=== PATIENT | female | born 1965 | race African-American/Black ===

== ENCOUNTER 2025-03-26 09:17 | Outpatient (AMB) | payer OTHER, SELFPAY ==
--- OUTSIDE RECORDS SUMMARY | 2024-07-13 09:04 | XMS_ITS | Encounter Summary ---
Author Organization [facility] [place] [address] Care Team Providers Care Dermatology Procedural Physician Name Role Phone Anahi Jensen NP Primary Care Provider [phone] Encounter Details Date Type Department Care Team (Late st Contact Info) Description 07/13/2024 9:04 AM EDT Hospital Encounter TH HISTORIC ENCOUNTERS EASTERN CONVERSION ONLY Rivera Donald MD [address] [place] [address] Social History Tobacco Use Types Packs/Day Years Used Date Smoking Tobacco: Every Day Cigarettes Smokeless Tobacco: Never Alcohol Use Standard [...] your loved ones. For example, director of early childhood education or elderly care for an older adult? [...] Date Recorded What is your living situation? 0 10/11/2024 Comments No Sex and Gender Information Value Date Recorded Sex Assigned at Female 11/09/2022 7:07 AM EST Legal Sex Female 10:19 AM EST Gender Identity Female 11/09/2022 7:07 AM EST Sexual Orientation Straight 11/09/2022 7: 07 AM EST documented as of this encounter Plan of Treatment Upcoming Encounters Date Type Department Care Team (Late st Contact Info) Description 06/19/2025 8:00 AM EDT Office Visit [facility] [address] [facility] [address] [place] [address] Ramirez Suazo MD [address] [facility] [address] [place] [address] documented as of this encounter Procedures Procedure Name Priority Date/Time Associated Diagnosis Comments DR ABDOMEN FLAT AND ERECT Routine 07/13/2024 10:26 AM EDT documented in this encounter Results * DR ABDOMEN FLAT AND ERECT (07/13/2024 10:26 AM EDT) Anatomical Region Laterality Modality Radiographic Ramona ging 07/13/2024 9:09 AM EDT Narrative 07/13/2024 10:26 AM EDT [facility] Diagnostic Imaging Department [address] [place], [place] [phone] Patient: KASANDRA ELIZABETH D.O.B./Age/Sex: 1965 - 58 - F Unit#: [id number] Location/Status: SPDIGEN/REG CLI Mnemonic/[facility] Ordering Physician: RIVERA DONALD MD DR Abdomen Flat and Erect - 07/13/[address] Report Status:Signed HISTORY: The patient is a [...] constipation, a new finding since 10/06/2021. Code 91590 Dictating Physician: LUBA ST MD Electronically Signed by: LUBA ST MD Dic Date/Time: 07/13/24 1024 Sign date/Time: 07/13/24 [address] MD - 07/15/2024 [facility] Diagnostic Imaging Department [address] [place] [address] Patient: KASANDRA ELIZABEHT /Age/Sex: 1965 - 58 -F Unit#: [id number] Location/Status: SPDIGEN/REG CLI Mnemonic/Ordering Site: [facility] Ordering Physician: RIVEAR DONALD MD DR Abdomen Flat and Erect - 07/13/24 - 925 Report Status:Signed HISTORY: The patient is a [...] constipation, a new finding since 10/06/2021. Code 70241 Dictating Physician: LUBA ST MD Electronically Signed by: LUBA ST MD Dic Date/Time: 07/13/24 1024 Sign date/Time: 07/13/24 1026 Rivera Donald MD IMG XR PROCEDURES Final Result documented in this encounter Visit Diagnoses Not on filedocumented in this encounter Care Teams Dermatology Procedural Physician Relationship Specialty Start Date End Date Anahi Jensen NP [address] [place] [address] PCP - General 10/02/22 documented as of this encounter
--- NOTE | 2025-03-26 09:21 | HO.SPINEOV ---
Vital Signs 03/26/25 09:30 Height 5 ft 1 in Weight 125 lb BMI 23.6 Intake Visit Reasons: cervical stenosis Intake Note: Ms. Stewart is here today c/o neck pain. Car Filler Required: No Allergies No Known Allergies Allergy (Verified 03/26/25 09:30) Physical Exam Vital Signs: BMI result Body Mass Index 23.6 Assessment & Plan Assessment & Plan (1) Cervical myelopathy: Code(s): G95.9 - Disease of spinal cord, unspecified Category: Medical Plan Dear Marisela, Thank you for referring Mrs Stewart to our office today. She is a very nice 59-year-old female who presents today for evaluation of tingling in the dorsum of her hands and the tops of her feet, as well as tingling on the left side of her face as well as altered sensation of her tongue. The patient reports that the original symptoms were the tingling and pain in the left side of the face, and this started a few years ago. She thought that it might have happened from a dental procedure, but she can not really relate the symptoms connected to its specifically. She had a filling at that time on the right side. She would intermittently get the symptoms and ultimately ended up at your office, was worked up and because of neck pain underwent a cervical MRI which showed that she had degenerative disc disease with cord signal change and stenosis at C4-5. She was referred to Dr. Hughes at [facility] who recommended she undergo anterior cervical fusion. The visit was very brief and she did not feel as though she got answers to questions, and wanted to see us for a 2nd opinion. She reports that the tingling in the dorsum of her hands and her feet started just a few months ago. She does not report any problem with fine motor movements, gait instability or strength loss. No bowel or bladder incontinence reported either. PMH: She is reasonably healthy, history of hypertension which is well controlled, GERD, constipation but denies any issues with cardiopulmonary disease, kidney or liver problems, bleeding disorders, blood clots, endocrine disorders, infections, cancer etc. Social hx: She smokes about a pack a day, but does not drink or use any recreational drugs Medications: Amlodipine and pantoprazole Allergies: None Physical exam: Awake alert oriented, gait is normal, tandem gait testing is normal, strength is excellent in the upper and lower extremities, she is diffusely hyperreflexic with clonus in both ankles and Altamirano's sign in her right hand. Imaging review: Cervical MRI done at [facility] in 2023 with and without gadolinium, does not show any enhancement in the spinal cord but there is evidence of T2 cord signal change right behind the disc space of C4-5 where there is [id number] disc bulging and moderate to severe stenosis. There is some mild disc bulging at C6-7 but no significant cord compression seen. Brain MRI also done at [facility] showing no acute findings or structural abnormalities. Impression: 59-year-old female presents for evaluation of intermittent tingling and numbness as well as pain and altered sensation on left side of the face, in addition to tingling without numbness on the dorsum of her hands and dorsum of her feet. Brain MRI was negative, cervical MRI shows degenerative disc disease at C4-5 with moderate to severe stenosis and cord signal change. Although she has no strength loss or balance findings, she is diffusely hyperreflexic. This suggests that she is myelopathic just very early in the process. I am not sure if I can correlate the tingling and numbness of the face to the C4-5 level, that is typically a little bit higher in the cervical spine. Interestingly, when she underwent the MRI last year she was not having any of the symptoms in the hands or the feet. It was strictly a neck pain situation and the facial sensation changes. Therefore, I would like to get an updated picture to be clear that nothing has changed since last year as that MRIs done about 11 months ago. I will review everything with Dr. Kenny but I think he is also going to offer her ACDF C4-5 unless the new MRI shows something different. I had to cancel the patient however that the goal of surgery would not be to get rid of the symptoms, but rather to stabilize and prevent her from getting worse. She tells me that Dr. Hughes told her this as well. All pertinent risks and benefits of surgery as well as recovery were discussed. Once I have a chance to review the new MRI with Dr. Kenny I will call the patient with a final plan. Thank you for allowing us to care for your patient. The total time spent with this visit with this patient was 45 minutes reviewing history, physical exam, cervical MRI imaging review, and implementation of treatment plan or further diagnostic testing Tony Kenny MD,PhD [facility] Orders: Orders MR cervical spine wo con Today G95.9 - Disease of spinal cord, unspecified Coding Level of Care Code New Pt Level 4 (65586) Diagnoses Cervical myelopathy G95.9
[2025-03-26 09:30] VITALS: BMI 23.6
--- OUTSIDE RECORDS SUMMARY | 2025-03-26 09:39 | XMS_ITS | Clinical Summary ---
Author Organization [facility] Address [address] [place] [address] Care Team Providers Care Filing And Polishing Supervisor Name Role Phone Unavailable Primary Care Provider Unavailabl e Social History Tobacco Use Types Packs/Day Years Used Date Smoking Tobacco: Never Assessed Comments Unknown Sex and Gender Information Value Date Recorded Sex Assigned at Not on file Legal Sex Female 1:07 PM EDT Gender Identity Not on file Sexual Orientation Not on file Last Filed Vital Signs Vital Sign Reading Time Taken Comments Blood Pressure 110/70 05/07/2013 4:13 PM EDT Pulse 84 05/07/2013 4:13 PM EDT Temperature 36.7 C (98.1 F) 05/07/2013 4:13 PM EDT Respiratory Rate 16 05/07/2013 4:13 PM EDT Oxygen Saturation - - Inhaled Oxygen Concentration - - Weight 59 kg (130 lb 0.1 oz) 05/07/2013 4:13 PM EDT Height - - Body Mass Index - - Plan of Treatment Health Maintenance Due Date Last Done Comments Hepatitis C Virus Screening 1965 HIV Screening 1979 DTaP/Tdap/Td Vaccines (1 - Tdap) 1985 Hepatitis B Vaccines (1 of 3 - 19+ 3-dose series) 07/14 Pneumococcal Vaccines 50+ (1 of 1 - PCV) 2016 Zoster (Shingles) Vaccine (1 of 2) 2016 COVID-19 Vaccine (1 - 2023-25 season) 2024
--- OUTSIDE RECORDS SUMMARY | 2025-03-26 09:39 | XMS_ITS | Clinical Summary ---
Author Organization [facility] Address [address] [place] [address] Care Team Providers Care Programmer Numerical Control Name Role Phone Marlon Jimenes MD Primary Care Provider [phone] Allergies No known active allergies Medications Medication Sig Dispensed Refills Start Date End Date Status metroNIDAZOLE (FLAGYL) 250 MG tablet Take 1 tablet (250 mg total) by mouth 2 (two) times a day. 0 2022 Active nystatin (MYCOSTATIN) 132990 UNIT/ML suspension TAKE 4-6 ML BY MOUTH FOUR TIMES DAILY 0 08/26/2022 Active omeprazole (PriLOSEC) 20 MG capsule Take 1 capsule (20 mg total) by mouth daily. 0 08/26/2022 Active sulfamethoxazole-tr imethoprim (BACTRIM) 400-80 MG per tablet Take 1 tablet (80 mg of trimethoprim total) by mouth 2 (two) times a day. 0 08/12/2022 Active Active Problems Problem Noted Date Diagnosed Date Sprain of medial collateral ligament of left kne e 06/12/2022 Acute medial meniscus tear of right knee 022 Effusion of right knee joint 06/12/2022 Social History Tobacco Use Types Packs/Day Years Used Date Smoking Tobacco: Never Assessed Sex and Gender Information Value Date Recorded Sex Assigned at Not on file Gender Identity Not on file Sexual Orientation Not on file Job Start Date Occupation Industry Not on file Not on file Not on file Last Filed Vital Signs Vital Sign Reading Time Taken Comments Blood Pressure - - Pulse - - Temperature - - Respiratory Rate - - Oxygen Saturation - - Inhaled Oxygen Concentration - - Weight 63.5 kg (140 lb) 09/04/2022 9:17 AM EST Height 161.3 cm (5' 3.5 ) 09/04/2022 9:17 AM EST Body Mass Index 24.41 09/04/2022 9:17 AM EST Plan of Treatment Health Maintenance Due Date Last Done Comments Hepatitis B Vaccines (1 of 3 - 3-dose series) 1966 Hepatitis C Screening 1966 COVID-19 Vaccine (#1) 01/24/1967 Depression Screening 1978 BMI Counseling 1984 Preventative Health Evaluation 1984 DTap / Tdap / Td (1 - Tdap) 1985 Cervical Cancer Screening (P ap Smear) 1987 Colon Cancer Screening (Colonoscopy) 2011 Breast Cancer Screening (Mammogram) 2016 Shingrix-Zoster Vaccine (1 of 2) 2016 Influenza Vaccine (#1) 2025 Pneumococcal Vaccine Aged Out No long er eligible based on patient's age to complete this topic RSV Ped < 20 months Aged Out No longe r eligible based on patient's age to complete this topic Care Teams Programmer Numerical Control Relationship Specialty Start Date End Date Marlon Jimenes MD [address] [address] PCP - General Internal Medicine 06/10/22
--- OUTSIDE RECORDS SUMMARY | 2025-03-26 09:39 | XMS_ITS | Encounter Summary ---
Author Organization [facility] Address [address] [place] [id number] Care Team Providers Care Steel Erecting Pusher Name Role Phone Unavailable Primary Care Provider Unavailabl e Encounter Details Date Type Department Care Team (Latest Contact Info) Description 01/01/2022 Transcribed Orders [facility] Specimens [address] [place], [place] [id number] Emre Mathur MD [address] [place] [phone] Encounter for breast augmentation (Primary Dx); Pre-op testing Social History Tobacco Use Types Packs/Day Years Used Date Smoking Tobacco: Never Assessed Comments Unknown Sex and Gender Information Value Date Recorded Sex Assigned at Not on file Legal Sex Female 3:17 PM EDT Gender Identity Not on file Sexual Orientation Not on file documented as of this encounter Plan of Treatment Not on file documented as of this encounter Results * COVID-19 Clearance or for Placement Only (01/14/2022 3:18 PM EDT) SARS-CoV-2 RNA (COVID-19) Not Detected Not Detected 01/15/2022 6:14 AM EDT [facility] DEPARTMENT OF LABORATORY MEDICINE Comment: Negative for SARS-CoV-2 RNA. Fact Sheet for Healthcare Providers: https://www.fda.gov/media/616249/download Fact Sheet for Patients: https://www.fda.gov/media/704478/download Test performed using the Alicia rossy 6800 real-time RT-PCR assay. Test ordering and result interpretation is at the discretion of the ordering provider. Test performance has not been evaluated in asymptomatic patients. Test ordering and result interpretation is at the discretion of the ordering provider. Test performed at: [facility] DEPARTMENT OF LABORATORY MEDICINE [address] [place] [address] Director: Bradford Ordoñez MD [facility]#: [id number] Viral NASOPHARYNGEAL STRUCTURE / Unknown Collection / Unknown 01/14/2022 3:18 PM EDT 01/14/2022 3:18 PM EDT Emre Mathur MD MICROBIOLOGY - GENERAL ORDERABLE S Final Result Performing Organization Address [facility]/State/[facility] Co de Phone Number [facility] DEPARTMENT OF LABORATORY MEDICINE [address] [place] [id number], [facility] [phone] documented in this encounter Visit Diagnoses Diagnosis Encounter for breast augmentation- Primary Other plastic surgery for unacceptable cosmetic appearance Pre-op testing Preoperative examination, unspecified documented in this encounter
== END 2025-03-26 10:15 | disposition home or self-care (01) ==
LOC: HO.HNS 09:17
PROVIDERS: PCP Nurse Practitioner Primary Care; Referring Provider Physician Assistant; Visit Provider Physician Assistant
DX: G95.9 Disease of spinal cord, unspecified (principal)
CPT/HCPCS: 99204

== ENCOUNTER 2025-04-01 14:13 | Outpatient (REF) | payer OTHER, SELFPAY ==
--- OUTSIDE RECORDS SUMMARY | 2024-07-13 09:04 | XMS_ITS | Encounter Summary ---
Author Organization [facility] [place] [address] Care Team Providers Care Information Technology Analyst Name Role Phone Anahi Jensen NP Primary Care Provider [phone] Encounter Details Date Type Department Care Team (Late st Contact Info) Description 07/13/2024 9:04 AM EDT Hospital Encounter TH HISTORIC ENCOUNTERS EASTERN CONVERSION ONLY Rivera Donald MD [address] [place] [address] Social History Tobacco Use Types Packs/Day Years [...] care for your loved ones. For example, child and adolescent psychiatrist or elderly care for an older adult? [...] Description 06/19/2025 8:00 AM EDT Office Visit [facility] [address] [facility] [address] [place] [address] Ramirez Suazo MD [address] [facility] [address] [place] [address] documented as of this encounter Procedures Procedure Name Priority Date/Time Associated Diagnosis Comments DR ABDOMEN FLAT AND ERECT Routine 07/13/2024 10:26 AM EDT documented in this encounter Results * DR ABDOMEN FLAT AND ERECT (07/13/2024 10:26 AM EDT) Anatomical Region Laterality Modality Radiographic Ramona ging 07/13/2024 9:09 AM EDT Narrative 07/13/2024 10:26 AM EDT [facility] Diagnostic Imaging Department [address] [place], [place] [phone] Patient: KASANDRA ELIZABETH D.O.B./Age/Sex: 1965 - 58 - F Unit#: [id number] Location/Status: SPDIGEN/REG CLI Mnemonic/[facility] Ordering Physician: RIVERA DONALD [...] constipation, a new finding since 10/06/2021. Code 73484 Dictating Physician: LUBA ST MD Electronically Signed by: LUBA ST MD Dic Date/Time: 07/13/24 1024 Sign date/Time: 07/13/24 [address] MD - 07/15/2024 [facility] Diagnostic Imaging Department [address] [place] [address] Patient: KASANDRA ELIZABETH /Age/Sex: 1965 - 58 -F Unit#: [id number] Location/Status: SPDIGEN/REG CLI Mnemonic/Ordering Site: [facility] Ordering Physician: RIVERA DONALD [...] constipation, a new finding since 10/06/2021. Code 73693 Dictating Physician: LUBA ST MD Electronically Signed by: LUBA ST MD Dic Date/Time: 07/13/24 1024 Sign date/Time: 07/13/24 1026 Rivera Donald MD IMG XR PROCEDURES Final Result documented in this encounter Visit Diagnoses Not on filedocumented in this encounter Care Teams Information Technology Analyst Relationship Specialty Start Date End Date Anahi Jensen NP [address] [place] [address] PCP - General 10/02/22 documented as of this encounter
--- NOTE | ~2025-04-01 | MR_ITS ---
EXAMINATION: MR CERVICAL SPINE WITHOUT CONTRAST CLINICAL INFORMATION: Disease of spinal cord, unspecified. 51-year-old female complaining of tingling of arms and legs since 2023. No fall or injury. COMPARISON: None TECHNIQUE: Multiplanar multisequence MR imaging of the cervical spine was done without the administration IV gadolinium. Examination was performed on a 1.5 Katherine Siemens high-field unit, using standard sequences. FINDINGS: CORONAL ALIGNMENT: -Normal. SAGITTAL ALIGNMENT: -Normal lordosis. -No significant subluxations. -Trace 2 mm degenerative retrolisthesis C4 on C5. CRANIOCERVICAL JUNCTION/C1-2 ARTICULATIONS: -Intact and aligned. VERTEBRAL BODIES/BONE MARROW: -There is a mildly atypical hemangioma in C7. -There are mild edematous endplate changes present at C4-5 oriented to the right. -There are no compression deformities or evidence of acute fractures. -No additional bone marrow edema, or abnormal infiltrating bone marrow signal. DISCS: -Mild to moderate loss of disc height and signal diffusely, most significant at C4-5. CERVICAL CORD: -There is a focus of abnormal cord signal within the dorsal columns at the C4-5 disc level. Findings are suspicious for a focus of myelomalacia. There is mild cord impingement at this level as detailed below. -There is no additional abnormal cord signal identified. -There is no additional cord impingement identified. PARAVERTEBRAL SOFT TISSUES: -No edema, swelling, or abnormal fluid collection. -Thyroid is obscured by a saturation band. VISUALIZED INTRACRANIAL STRUCTURES: -Within normal limits. AXIAL DISC SPACE IMAGING: C2-C3: There is a shallow dorsal disc bulge, indenting upon the ventral thecal sac but not contacting the cord. There is minimal central canal narrowing. Normal facets. No neural foraminal narrowing. C3-C4: There is a diffuse disc bulge present, contiguous with bilateral mild uncinate spurring. This indents upon the ventral thecal sac, contacts and minimally flattens the ventral aspect of the cord. There is a thin sliver of CSF preserved posterior to the cord. There is no cord signal abnormality identified. There is mild to moderate central canal narrowing. Mild bilateral facet spurring and bilateral uncinate spurring contributes to moderate bilateral neural foraminal encroachment. C4-C5: There is a diffuse concentric disc bulge present, contiguous with bilateral mild uncinate spurring. This indents upon the ventral thecal sac, contacts and flattens the ventral aspect of the cord. There is mild cord impingement. There is signal abnormality in the dorsal columns suggestive of myelomalacia (series 9, image 12). Moderate uncinate spurring bilaterally with mild facet spurring contributes to severe bilateral neural foraminal impingement. C5-C6: There is a concentric shallow disc bulge indenting upon the ventral thecal sac but not contacting the cord. There is mild central canal stenosis. Mild uncinate spurring bilaterally contributes to mild right greater than left neural foraminal narrowing. C6-C7: There is a diffuse concentric disc bulge present, indenting on the ventral thecal sac but not contacting the cord. This results in mild central canal stenosis. Moderate uncinate spurring right greater than left is present, contributing to severe right and moderate to severe left neural foraminal stenosis. C7-T1: There is no significant central canal narrowing or disc bulging. Left greater than right facet hypertrophic arthropathy is present, resulting in mild left greater than right neural foraminal narrowing. T1-T2: There is a diffuse concentric disc bulge present with superimposed bilateral lateral disc protrusions (series 9, image 27) which result in mild central canal narrowing, significant bilateral lateral recess narrowing, and moderate right greater than left neural foraminal narrowing. T2-T4: No central canal or neural foraminal narrowing. MR/MR cervical spine wo con IMPRESSION: 1. There is mild to moderate multilevel cervical spondylosis as discussed above. 2. There is cord impingement at C4-5 with a focus of abnormal signal in the dorsal and lateral columns of the cord, suggestive of focal myelomalacia. There is severe bilateral neural foraminal narrowing at this level. 3. A diffuse disc bulge at C3-4 indents upon the ventral cord but does not result in cord impingement or signal abnormality. 4. There are mild edematous type endplate changes at C4-5. 5. At T1-T2, there are bilateral lateral protrusions of disc material resulting in significant bilateral lateral recess narrowing, and moderate bilateral neural foraminal narrowing. 6. Refer to the body of the report for additional details. Electronically signed by: Benito Gandara MD 04/02/2025 01:01 PM EDT
--- OUTSIDE RECORDS SUMMARY | 2025-04-01 14:20 | XMS_ITS | Patient Health Record ---
Author Organization [facility] [place] Address [address] [place] [place] [address] Care Team Providers Care Collator Hand Name Role Phone Anahi Jensen Primary Care Provider Ceci Galdamez Unavailable [phone] Allergies No Known Allergies Reason For Referral No Information Medications Medication SIG (Take, Route, Frequency, Duration) Notes Start Date End Date Status Percocet 5-325 MG 1 tablet as needed Orally every 6 hrs; Duration: 2 days 12/18/2022 Not-Taking Ketoconazole 2 % 1 application Apply a thin layer to externally to feet, even between toes Twice a day; Duration: 30 days Active Ciclopirox Olamine 0.77 % 1 application to affected area Externally to feet Twice a day; Duration: 30 days Not-Taking Vitamin B 12 Active amLODIPine Benzoate Active Vitamin D3 Not-Takin g Immunizations Vaccine Route Administration Date Status Comme nts Influenza Unknown 07/05/2024 Administered Social History Tobacco Use: Social History Observation Description Date Details (start date - stop date) Current Smoker NA - NA Tobacco use other than smoking: Question Answer Notes Are you an other tobacco user? No Tobacco Control (Standard) Question Answer Notes Tobacco use: Current smoker How often do you smoke cigarettes? Every day How many cigarettes a day do you smoke? 11-20 How soon after you wake up d o you smoke your first cigarette? 6-30 minutes Are you interested in quitting? Thinking about q uitting AUDIT-C (Standard) Question Answer Notes Did you have a drink containing alcohol in the p ast year? No Points 0 Interpretation Negative Problems Problem Type SNOMED Code ICD Code Onset Dates Problem Status W/U Status Risk Notes Problem Plantar wart (71338406) Plantar wart (B07.0) Active confirmed Problem Acquired hammer toe of left foot (5747890731717 103) Other hammer toe(s) (acquired), left foot (M20.42) Active confirmed Problem 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) Active confirmed Vital Signs Blood pressure diastolic 70 mm Hg 02/22/2025 Height 5ft 1in in 02/22/2025 Blood pressure systolic 130 mm Hg 02/22/2025 Weight 130 lbs 02/22/2025 BMI 24.56 kg/m2 02/22/2025 Encounters Encounter Location Date Provider Diagnosis [facility] [address] 02/22/2025 Ceci Aguero Plantar wart B07.0 ; Other hammer toe(s) (acquired), left foot M20.42 ; Tinea pedis of both feet B35.3 ; Left foot pain M79.672 ; Pain in left toe(s) M79.675 and Heloma molle L[address] [facility] [address] 02/16/2025 Ceci Aguero [facility] [address] 02/22/2025 Ceci Aguero [facility] [address] 02/22/2025 Ceci Aguero Assessments Encounter Date Diagnosis (ICD Code) Assessment Notes Treatment Notes Treatment Clinical Notes Section Notes 02/22/2025 Plantar wart (ICD-10 - B07.0) 02/22/2025 Other hammer toe(s) (acquired), left foot (ICD-10 - M20.42) 02/22/2025 Tinea pedis of both feet (ICD-10 - B35.3) 02/22/2025 Left foot pain (ICD-10 - M79.672) 02/22/2025 Pain in left toe(s) (ICD-10 - M79.675) 02/22/2025 Heloma molle (ICD-10 - L84) Plan Of Treatment Next Appt Details Provider Name:Ceci titus, 04/09/2025 04:00:00 PM, [address] [place] [address], [place], [address], Insurance Providers Payer Name Payer Address Payer Phone Subscriber Number Group Number Insured Name Patient Relationship to Insured Coverage Start Date Coverage End Date [facility] [address] [place] [address] [id number] Kasandra Stewart Self - patient is the insured Medical (General) History Medical History History ICD Code Crohns disease High Blood Pressure Surgical History Surgery Date(Month/Year) hysterectomy Hospitalization History Reason Date(Month/Year) issues with foot and stomach
--- OUTSIDE RECORDS SUMMARY | 2025-04-01 14:20 | XMS_ITS | Clinical Summary ---
Author Organization [facility] Address [address] [place] [address] Care Team Providers Care Assembler For Puller Over Machine Name Role Phone Unavailable Primary Care Provider [...] Vaccine (1 of 2) 2016 COVID-19 Vaccine ( - 2023-25 season) 2024
--- OUTSIDE RECORDS SUMMARY | 2025-04-01 14:20 | XMS_ITS | Encounter Summary ---
Author Organization [facility] Address [address] [place] [phone] Care Team Providers Care Flight Manager Name Role Phone Unavailable Primary Care Provider Unavailabl e Encounter Details Date Type Department Care Team (Latest Contact Info) Description 01/01/2022 Transcribed Orders [facility] Specimens [address] [place], [place] [id number] Emre Mathur MD [address] [place] [phone] Encounter for breast augmentation (Primary Dx); [...] Detected Not Detected 01/15/2022 6:14 AM EDT [facility] DEPART[facility] OF LABORATORY MEDICINE Comment: Negative for SARS-CoV-2 RNA. Fact Sheet for Healthcare Providers: https://www.fda.gov/media/279241/download Fact Sheet for Patients: https://www.fda.gov/media/583124/download Test performed using the Alicia rossy 6800 real-time RT-PCR assay. Test ordering and result interpretation is at the discretion of the ordering provider. Test performance has not been evaluated in asymptomatic patients. Test ordering and result interpretation is at the discretion of the ordering provider. Test performed at: [facility] DEPARTMENT OF LABORATORY MEDICINE [address] [place] [address] Director: Bradford Ordoñez MD [facility]#: [id number] Viral NASOPHARYNGEAL STRUCTURE / Unknown Collection / Unknown 01/14/2022 3:18 PM EDT 01/14/2022 3:18 PM EDT Emre Mathur MD MICROBIOLOGY - GENERAL ORDERABLE S Final Result Performing Organization Address [facility]/State/[facility] Co de Phone Number [facility] OF LABORATORY MEDICINE [address] [place] [address], [facility] [phone] documented in this encounter Visit Diagnoses Diagnosis Encounter for breast augmentation- Primary Other plastic surgery for unacceptable cosmetic appearance Pre-op testing Preoperative examination, unspecified documented in this encounter
== END 2025-04-01 14:14 | disposition home or self-care (01) ==
LOC: HO.MRI 14:13
PROVIDERS: Visit Provider Physician Assistant
DX: G95.9 Disease of spinal cord, unspecified (principal)
CPT/HCPCS: 72141

== ENCOUNTER → 2025-04-01 14:13 | Outpatient (BNV) | payer OTHER, SELFPAY | PROVIDERS: Visit Provider Radiology Diagnostic Radiology | DX: M47.812 Spondylosis without myelopathy or radiculopathy, cervical region (principal) | CPT/HCPCS: 72141 ==

== ENCOUNTER 2025-05-31 05:46 | Day surgery (SDC) | payer OTHER, SELFPAY ==
--- OUTSIDE RECORDS SUMMARY | 2024-07-13 09:04 | XMS_ITS | Encounter Summary ---
Author Organization [facility] [place] [address] Care Team Providers Care Cloth Beamer Name Role Phone Anahi Jensen NP Primary Care Provider [phone] Encounter Details Date Type Department Care Team (Late st Contact Info) Description 07/13/2024 9:04 AM EDT Hospital Encounter TH HISTORIC ENCOUNTERS EASTERN CONVERSION ONLY Rivera Donald MD [address] [place] [address] Social History Tobacco Use Types Packs/Day Years [...] care for your loved ones. For example, salesperson children's shoes or elderly care for an older adult? [...] Description 06/19/2025 8:00 AM EDT Office Visit [facility] [address] [facility] [address] [place] [address] Ramirez Suazo MD [address] [facility] [address] [place] [address] documented as of this encounter Procedures Procedure Name Priority Date/Time Associated Diagnosis Comments DR ABDOMEN FLAT AND ERECT Routine 07/13/2024 10:26 AM EDT documented in this encounter Results * DR ABDOMEN FLAT AND ERECT (07/13/2024 10:26 AM EDT) Anatomical Region Laterality Modality Radiographic Ramona ging 07/13/2024 9:09 AM EDT Narrative 07/13/2024 10:26 AM EDT [facility] Diagnostic Imaging Department [address] [place], [place] [id number] Patient: KASANDRA ELIZABETH D.O.B./Age/Sex: 1965 - 58 - F Unit#: [id number] Location/Status: SPDIGEN/REG CLI Mnemonic/[facility] Ordering Physician: RIVERA DONALD MD DR Abdomen [...] constipation, a new finding since 10/06/2021. Code 15916 Dictating Physician: LUBA ST MD Electronically Signed by: LUBA ST MD Dic Date/Time: 07/13/24 1024 Sign date/Time: 07/13/24 [address] MD - 07/15/2024 [facility] Diagnostic Imaging Department [address] [place] [address] Patient: KASANDRA ELIZABETH /Age/Sex: 1965 - 58 -F Unit#: [id number] Location/Status: SPDIGEN/REG CLI Mnemonic/Ordering Site: [facility] Ordering Physician: RIVERA DONALD MD DR Abdomen [...] constipation, a new finding since 10/06/2021. Code 90146 Dictating Physician: LUBA ST MD Electronically Signed by: LUBA ST MD Dic Date/Time: 07/13/24 1024 Sign date/Time: 07/13/24 1026 Rivera Donald MD IMG XR PROCEDURES Final Result documented in this encounter Visit Diagnoses Not on filedocumented in this encounter Care Teams Cloth Beamer Relationship Specialty Start Date End Date Anahi Jensen NP [address] [place] [address] PCP - General 10/02/22 documented as of this encounter
--- OUTSIDE RECORDS SUMMARY | 2025-04-27 06:52 | XMS_ITS | Clinical Summary ---
Author Organization [facility] Address [address] [place] [address] Care Team Providers Care Customer Service Manager Name Role Phone Unavailable Primary Care [...]
--- OUTSIDE RECORDS SUMMARY | 2025-04-27 06:52 | XMS_ITS | Encounter Summary ---
Author Organization [facility] Address [address] [place] [address] Care Team Providers Care Sports Development Officer Name Role Phone Unavailable Primary Care Provider Unavailabl e Encounter Details Date Type Department Care Team (Latest Contact Info) Description 01/01/2022 Transcribed Orders [facility] Specimens [address] [place], [place] [id number] Emre Mathur MD [address] [place] [phone] Encounter for breast augmentation (Primary Dx); [...] Detected 01/15/2022 6:14 AM EDT [facility] DEPARTMENT OF LABORATORY MEDICINE Comment: Negative for SARS-CoV-2 RNA. Fact Sheet for Healthcare Providers: https://www.fda.gov/media/334700/download Fact Sheet for Patients: https://www.fda.gov/media/956487/download Test performed using the Alicia rossy 6800 real-time RT-PCR assay. Test ordering and result interpretation is at the discretion of the ordering provider. Test performance has not been evaluated in asymptomatic patients. Test ordering and result interpretation is at the discretion of the ordering provider. Test performed at: [facility] DEPARTMENT OF LABORATORY MEDICINE [address] [place] [address] Director: Bradford Ordoñez MD [facility]#: [id number] Viral NASOPHARYNGEAL STRUCTURE / Unknown Collection / Unknown 01/14/2022 3:18 PM EDT 01/14/2022 3:18 PM EDT Emre Mathur MD MICROBIOLOGY - GENERAL ORDERABLE S Final Result Performing Organization Address [facility]/State/[facility] Co de Phone Number [facility] DEPARTMENT OF LABORATORY MEDICINE [address] [place] [address], [facility] [phone] documented in this encounter Visit Diagnoses Diagnosis Encounter for breast augmentation- Primary Other plastic surgery for unacceptable cosmetic appearance Pre-op testing Preoperative examination, unspecified documented in this encounter
--- OUTSIDE RECORDS SUMMARY | 2025-04-27 06:52 | XMS_ITS | Patient Health Record ---
Author Organization [facility] lisa Ione Address [address] [facility] [place] [address] Care Team Providers Care Nurse Staff Industrial Name Role Phone Anahi Jensen Primary Care Provider Ceci Galdamez Unavailable [phone] Allergies No Known Allergies Reason For Referral No Information Medications Medication SIG (Take, Route, Frequency, Duration) Notes Start Date End Date Status amLODIPine Benzoate Active Vitamin B 12 Active Vitamin D3 Not-Takin [...] Twice a day; Duration: 30 days Active Immunizations Vaccine Route Administration Date Status Comme [...] W/U Status Risk Notes Problem Plantar wart (43840469) Plantar wart (B07.0) Active confirmed Problem Acquired hammer toe of left foot (7571459881756 103) Other hammer toe(s) (acquired), left foot (M20.42) Active confirmed Problem 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) Active confirmed Vital Signs Blood pressure diastolic 70 mm Hg 02/22/2025 Height 5ft 1in in 02/22/2025 Blood pressure systolic 130 mm Hg 02/22/2025 Weight 130 lbs 02/22/2025 BMI 24.56 kg/m2 02/22/2025 Encounters Encounter Location Date Provider Diagnosis [address] [address] 02/22/2025 Ceci Aguero Plantar wart B07.0 ; Other hammer toe(s) (acquired), left foot M20.42 ; Tinea pedis of both feet B35.3 ; Left foot pain M79.672 ; Pain in left toe(s) M79.675 and Heloma molle L[address] [facility] [address] 02/16/[address] [address] [facility] [address] 02/22/2025 Ceci Aguero [address] [address] 04/09/2025 Ceci Aguero Assessments Encounter Date Diagnosis (ICD [...] molle (ICD-10 - L84) Plan Of Treatment No Information Insurance Providers Payer Name Payer Address Payer Phone Subscriber Number Group Number Insured Name Patient Relationship to Insured Coverage Start Date Coverage End Date [facility] [address] [place] [address] [phone] [id number] Kasandra Stewart Self - patient is the insured Medical (General) History Medical History History ICD Code Crohns disease High Blood Pressure Surgical History Surgery Date(Month/Year) hysterectomy Hospitalization History Reason Date(Month/Year) issues with foot and stomach
--- OUTSIDE RECORDS SUMMARY | 2025-04-27 06:52 | XMS_ITS | Clinical Summary ---
Author Organization [facility] Address [address] [place] [address] Care Team Providers Care Power Lineman Name Role Phone Marlon Jimenes MD Primary Care Provider [phone] Allergies No known active allergies Medications Medication Sig Dispensed Refills Start Date End Date Status metroNIDAZOLE (FLAGYL) 250 MG tablet Take 1 tablet (250 mg total) by mouth 2 (two) times a day. 0 2022 Active nystatin (MYCOSTATIN) 817850 UNIT/ML suspension TAKE 4-6 ML BY MOUTH [...] age to complete this topic Care Teams Power Lineman Relationship Specialty Start Date End Date Marlon Jimenes MD [address] [address] PCP - General Internal Medicine 06/10/22
[2025-05-23 13:32] VITALS: BMI 24.9
--- NOTE | 2025-05-29 16:20 | P.DS_ITS ---
DS: Providers Provider Date of Service: 05/31/25 Date of discharge: 05/31/25 Primary care physician: Unknown Physician Admitting clinician: Jeremy Kenny DS: Diagnosis Discharge Diagnosis (1) Cervical myelopathy: Status: Acute DS: Summary Time Attestation Discharge Coordination Time (in mins): 5 Quality: Safe Use of Opioids Does Pt have an Active Cancer Diagnosis on the Problem List?: No Quality: Stroke Does the patient have a stroke diagnosis?: No Physical Exam Vital Signs: Vital Signs: BMI result Body Mass Index 24.9 Discharge Plan Discharge Patient Disposition: Home, Self-Care Referrals: Physician,Unknown J [Primary Care Provider, Medical] - 1 Week Discharge Medications: New oxycodone 5 mg tablet 5 mg PO Q4H PRN (Reason: pain) Qty: 20 0RF Rx Instructions: Partial Fill upon patient request. Continued amlodipine 5 mg tablet 5 mg PO DAILY pantoprazole 20 mg tablet,delayed release (DR/EC) 20 mg PO DAILY polyethylene glycol 3350 [Miralax] 17 gram/dose Powder 17 g PO DAILY Linzess 290 mcg capsule 290 mcg PO DAILY Discharge Orders: Discharge Order (Routine); Ordered 05/31/25 Ordered By: Tony Nogueira Diet: Advance to usual diet Activity on Discharge: As tolerated Activity Restrictions/Additional Instructions: After your spinal surgery we ask you to observe the following restrictions/guidelines: Activity: It is normal to feel some discomfort as you increase your activity, but that will improve with time. We ask you avoid heavy lifting or acitivities that cause pain. As a general rule, 8lbs is a safe limit for lifting right after surgery. Walk as much as you feel comfortable but not to exhaustion. You will feel extra tired the first few days after surgery. Stay well hydrated. It is OK to walk up and down stairs You may return to driving when you are off narcotics (such as vicodin, oxycodone, dilaudid, etc), and you are back to normal functional capacity. If you have any concerns please check with office before driving. Return to work is specific to each patient and each surgery, so please speak with your doctor/PA at first follow up. Please bring paperwork such as FMLA at that time if you need it filled out. Medications: For optimum pain control, it is best to start with a combination of 500 mg of Tylenol every 4 hours with 600 mg of Motrin every 8 hours, and use narcotics as needed in between for breakthrough pain. We will give you a short supply of narcotics after surgery (usually one weeks wo rth). If you need more please call the office but do not use more than prescribed. You will need to give our office 48 hours notice if you need narcotics refilled and we do not fill narcotics on weekends or evenings. If you are on a narcotic, it is a good idea to take a stool softener such as colace or senna to avoid constipation If you take blood thinner such as aspirin, Plavix, Coumadin, Effient, Eliquis etc for conditions such as Afib, DVT, Pulmonary embolus, coronary disease, stents etc please speak with your surgeon about specific details as to when you can resume these medications. Follow up: Please call the office, , after surgery to arrange a 3 week follow up for wound check. Wound Care: You may remove your dressing on the first day after surgery. ?You may ?leave open to air. Please do not remove the steri strips underneath. they will fall off on their own in one week. IT IS NORMAL FOR THE WOUND TO OOZE OR BE BLOODY FOR A FEW DAYS AFTER SURGERY. ?IF THIS HAPPENS JUST PLACE NEW DRESSING OVER IT TO AVOID STAINING CLOTHES. You may shower on post op day # 1 We ask that you do not let the water soak the wound. If it does get wet, just towel dry lightly. Please do not scrub your incision or place any type of chemical/ointment on the wound. No tub baths, pools or jacuzzis for one month. If you have any leaking or redness from your wound, or fevers, please call office Print Language: Frisian
[2025-05-31] VITALS (11 sets, daily range): BP systolic 87–125; BP diastolic 57–84; PULSE 62–83; RESP 8–16; TEMP 36.1–36.3; O2SAT 95–100
--- NOTE | ~2025-05-31 | FL_ITS ---
EXAMINATION: FL GUIDANCE ONLY HISTORY: C4-5 ACDF COMPARISON: Correlation is made with an MRI of the cervical spine dated 04/01/2025. TECHNIQUE: Fluoroscopy time: 5.6 seconds. Cumulative Dose: 0.5443 mGy. DAP: 0.151 mGym2 Images: 2. FINDINGS: Fluoroscopic spot films of the cervical spine demonstrate anterior cervical disc fusion at C4-5. FL/FL guidance in OR IMPRESSION: Fluoroscopy during procedure. Please see procedure report for additional information. Electronically signed by: Manuel Sterling MD 05/31/2025 09:02 AM EDT
[2025-05-31] MEDS: Lactated Ringers 1,000 ML 100 ML IVCONT (06:35)
--- NOTE | 2025-05-31 06:59 | MHC.SHP ---
Pre-Procedural Eval Section A - 24 Hr Update-Section A only Date of Service: 05/31/25 The patient is an INPATIENT: No Changes since office visit: No Cold of Flu in the past 2 weeks, No New Medical Problems, No Changes in Medication and No Patient answered all questions The patient has been examined within 24 hours of the surgical procedure. The History & Physical has been completed within 30 days and I have reviewed it.: No Section B - Complete if H&P > 30 days Chief Complaint: Disease of spinal cord, unspecified Allergies: Allergies Allergy/AdvReac Type Severity Reaction Status Date / Time No Known Allergies Allergy Verified 03/26/25 09:30 Review of Systems Sugical H&P ROS: Negative: Constitution, Cardiovascular, Respiratory, Neurological, Psychiatric, Hem-Onc, Allergic/Immunologic, Gastrointestinal, Genitourinary, Musculoskeletal, Integumentary, Endocrine and Eyes/Ears/Nose/Throat Exam Surgical H&P Exam: Normal: HEENT, Normal: Heart, Normal: Lungs, Normal: Extremities, Normal: Abdomen, Normal: Skin and Normal: Neurological (awake, alert,oriented x 3 ) Plan Diagnosis/Plan: Unchanged C4-5 Anterior cervical diskectomy and fusion Time Spent With Patient Time: Total time managing care of this patient today __6__ minutes.
--- NOTE | 2025-05-31 07:06 | HO.ANESPROP2 ---
Documented by User: Sri Valdez NP 05/23/25 15:01 HPI - Anesthesia Eval Consult details Narrative: 59 yr old female for C4-5 Ant Cerv Discectomy w/ fusion PMFSH Active Problems Active Problems: All Active Problems (Updated 05/23/25 @ 13:29 by Dalia Peters RN) Cervical myelopathy (Acute) Past Medical History Medical History Anxiety Thyroid nodule HTN (hypertension) GERD (gastroesophageal reflux disease) Dysphagia Ulcerative colitis IBS (irritable bowel syndrome) Surgical History Surgical History Hx of hysterectomy History of esophagogastroduodenoscopy (EGD) H/O colonoscopy Hx of breast augmentation Social History Social History Are you a primary director of critical care to a significant other at home: No Do you presently have visiting nurse or other home services: No Patient Tobacco Use Status: Current everyday Tobacco user Tobacco use type: Cigarette Cigarettes Per Day: 8 Years Smoked: 10 Use of substances other than those prescribed or required for medical reasons: No Have you been hit, kicked, punched, or otherwise hurt by someone within the past year? If so, by whom?: No Spiritual Healthcare Practices: no Restoration Healthcare Practices: no Cultural Healthcare Practices: no Are you DNR?: No Advance Directives on File: No FDLMP: n/a Poor oral hygiene: No (one gold crown) Meds Allergies Allergy/AdvReac Type Severity Reaction Status Date / Time No Known Allergies Allergy Verified 03/26/25 09:30 Home Medications ?Medication ?Instructions ?Recorded ?Confirmed ?Last Taken ?Type amlodipine 5 mg tablet 5 mg PO DAILY 05/22/25 05/31/25 05/31/25 History pantoprazole 20 mg tablet,delayed 20 mg PO DAILY 05/22/25 05/31/25 05/31/25 History release linaclotide 290 mcg capsule 290 mcg PO DAILY 05/23/25 05/31/25 Unknown History (Linzess) polyethylene glycol 3350 17 17 g PO DAILY 05/23/25 05/31/25 Unknown History gram/dose oral powder (Miralax) Exam Height,Weight and Vital Signs: Height 5 ft 1 in Weight 59.9 kg Pertinent Lab Results Pertinent Lab Results: Lab result from [facility] 05/18/25 Sodium: 140 Potassium 3.5 Glucose 97 BUN 18 Creatinine 0.83 A1C 6.1% WBC 5.8 RBC 4.20 Hgb 12.6 Hct 37.6 Platelets 272 Narrative Narrative: EKG 05/18/25 Normal sinus rhythm, rate 7 Left axis deviation No acute ST-T wave changes Documented by User: Cristin Gimenez, 05/31/25 07:07 [facility] Past Medical History Medical History Anxiety Thyroid nodule HTN (hypertension) GERD (gastroesophageal reflux disease) Dysphagia Ulcerative colitis IBS (irritable bowel syndrome) Family History Family history of problems with anesthesia: No Surgical History Surgical History Hx of hysterectomy History of esophagogastroduodenoscopy (EGD) H/O colonoscopy Hx of breast augmentation History of Problems with Anesthesia: No Social History Social History Are you a primary director of critical care to a significant other at home: No Do you presently have visiting nurse or other home services: No Patient Tobacco Use Status: Current everyday Tobacco user Tobacco use type: Cigarette Cigarettes Per Day: 8 Years Smoked: 10 Use of substances other than those prescribed or required for medical reasons: No Have you been hit, kicked, punched, or otherwise hurt by someone within the past year? If so, by whom?: No Spiritual Healthcare Practices: no Restoration Healthcare Practices: no Cultural Healthcare Practices: no Are you DNR?: No Advance Directives on File: No FDLMP: n/a Poor oral hygiene: No (one gold crown) Meds Allergies Allergy/AdvReac Type Severity Reaction Status Date / Time No Known Allergies Allergy Verified 03/26/25 09:30 Home Medications ?Medication ?Instructions ?Recorded ?Confirmed ?Last Taken ?Type amlodipine 5 mg tablet 5 mg PO DAILY 05/22/25 05/31/25 05/31/25 History pantoprazole 20 mg tablet,delayed 20 mg PO DAILY 05/22/25 05/31/25 05/31/25 History release linaclotide 290 mcg capsule 290 mcg PO DAILY 05/23/25 05/31/25 Unknown History (Linzess) polyethylene glycol 3350 17 17 g PO DAILY 05/23/25 05/31/25 Unknown History gram/dose oral powder (Miralax) Exam Exam Date and Time: 05/31/25 07 Height,Weight and Vital Signs: Height 5 ft 1 in Weight 59.9 kg Vital Signs Temperature 97.4 F 05/31/25 06:26 Pulse Rate 75 05/31/25 06:26 Respiratory Rate 16 05/31/25 06:26 Blood Pressure 125/84 05/31/25 06:26 Pulse Oximetry 97 05/31/25 06:26 Oxygen Delivery Method Room Air 05/31/25 06:26 Temperature 97.4 F 05/31/25 06:26 Pulse Rate 75 05/31/25 06:26 Respiratory Rate 16 05/31/25 06:26 Blood Pressure 125/84 05/31/25 06:26 Pulse Oximetry 97 05/31/25 06:26 Oxygen Delivery Method Room Air 05/31/25 06:26 Airway Mallampati Class: II TM Dist: >3cm Neck ROM: Full Loose/Missing/Broken Teeth: No (patient denies any loose or broken teeth) Heart: S1S2 Lungs: CTAB Assessment and Plan Assessment Anesthesia Assessment: Anesthesia Plan Discussed and Chart Reviewed Final Anesthetic Review Family History of Problems with Anesthesia: No History of Problems with Anesthesia: No NPO: Yes ASA Class: II Final Preanesthetic Review: No Changes in Pt Med Stat, Meds/Allgs Chart Reviewed, Consent Obtained/Reviewed and Anes Risks/Benef Reviewed Patient Risk: Low Procedure Risk: Intermediate Anesthetic Plan Anesthetic Plan: GA and Agree w/ Assess. and Plan Disposition: Standard PACU
--- NOTE | 2025-05-31 08:39 | W.PM.OPN ---
Operative Note Operative Note Date of Service: 05/31/25 Narrative: Preoperative Diagnosis: Cervical myelopathy Procedure: C4-5 Anterior discectomy, arthrodesis and implantation cage ; C4-5 anterior instrumentation ; local autograft; microscope Informed Consent was obtained for this operation. I have explained the nature, purpose and benefits of the operation. I have discussed the risks and benefit of the operation including possible complications or adverse events with patient/family. Alternative(s) were discussed with the patient with their relative benefits and risks as well as the consequences of not accepting the operation were included in obtaining consent. Surgeon: JOANA FLOYD MD, PHD Procedure Assisted By: josep Olsen Description of Procedure: This compression with myelomalacia at C4-C5. She was offered an anterior diskectomy and fusion of this level. The procedure complications were explained. The patient was consented. The patient was brought to the operating room and endotracheally intubated. The patient was put in supine position with slight extension of the neck. Prep and drape was done followed by timeout. A mid cervical incision was made followed by opening of the platysma. The prevertebral fascia was reached following the natural planes while the physician clinical trials assistant provided manual retraction. The prevertebral fascia was opened to expose the disc space. A spinal needle was placed in the disk space to confirm the correct level with xray. The longus colli muscles were released bilaterally and a self retaining retractor was inserted. Two Redding pins were placed in the C4-C5 vertebral bodies and distraction was give over the interspace. The discectomy was completed toward the posterior annulus of the disc. The microscope was brought in. The remainder of the discectomy was completed. The posterior ligament was opened and resected to expose the underlying dura. Osteophytes were resected from the body of C4 and C5 to decompress the spinal cord and saved for autograft. Bilateral foraminotomies were done. The endplates were prepared after which a 6 mm cage filled with autograft was inserted into the disc space. A separate attached plate was locked down with 2 x 14 mm screws as anterior instrumentation. Final x-rays in AP and lateral projection showed a satisfactory position of the implant. The physician clinical trials assistant took over. The Redding pin was removed. Hemostasis was done. He closed the incision in 2 layers with a 3-0 Vicryl. Steri-Strips used to approximate incision. An OpSite with Tegaderm was used to cover the incision. All sponge and needle counts were correct. Patient was extubated and transported in stable is to recovery room. Anesthesia: General Estimated Blood Loss (ml): 10 Duration of Surgery: 40 minutes Postoperative Plan: Discharge home Complications: None
--- NOTE | 2025-05-31 12:39 | PC.NURSE ---
PATIENT WAS EXTREMELY FATIGUED IN DISCHARGE AREA. PATIENT WAS GIVEN DISCHARGE INSTRUCTIONS AND SHE SIGNED BUT PATIENT KEPT FALLING ASLEEP. PATIENT'S SON AT BEDSIDE. THIS RN GAVE PATIENT A COOL WASH CLOTH AND SOME GINGERALE. PATIENT RESPONED WHAT RN STATED TO MAKE SURE SHE HEARD. PATIENT'S SON ALSO LISTENED TO INSTRUCTIONS. THIS RN TOLD HER TO STAY IN DC AREA FOR AWHILE UNTIL SHE FELT BETTER. AFTER APPROXIMATELY 5 MINUTES, PATIENT'S SON TOLD THIS RN THAT PATIENT WOULD LIKE TO SPEND THE NIGHT. PACU NOTIFIED AND PATIENT BROUGHT BACK TO PACU FOR FURTHER ASSESSMENT FROM DR. FLOYD.
== END 2025-05-31 12:35 | disposition home or self-care (01) ==
LOC: HO.SSS 05:46
PROVIDERS: Visit Provider Neurological Surgery
PROC: (CPT 22551; principal; 2025-05-31 07:30)
DX: M50.021 Cervical disc disorder at C4-C5 level with myelopathy (principal); M48.02 Spinal stenosis, cervical region; I10 Essential (primary) hypertension; K21.9 Gastro-esophageal reflux disease without esophagitis; Z79.899 Other long term (current) drug therapy; F17.210 Nicotine dependence, cigarettes, uncomplicated
CPT/HCPCS: 22551; 22853; 20936; 22845; C1713; C1889; J0131; J0690; J1100; J1171; J1630; J2003; J2250; J2405; J2704; J3010

== ENCOUNTER → 2025-05-31 05:46 | Outpatient (BNV) | payer OTHER, SELFPAY | PROVIDERS: Visit Provider Neurological Surgery | DX: M50.021 Cervical disc disorder at C4-C5 level with myelopathy (principal); G95.9 Disease of spinal cord, unspecified | CPT/HCPCS: 20936; 22551; 22845; 22853; 99499 ==

== ENCOUNTER 2025-06-21 09:14 | Outpatient (AMB) | payer OTHER, SELFPAY ==
--- NOTE | 2025-06-21 09:21 | A.SPINEOV_ITS ---
Intake Visit Reasons: 1st post op Intake Note: Ms. Stewart is here today for her 1st post op. Motor Pool Driver Required: No Allergies No Known Allergies Allergy (Verified 03/26/25 09:30) Assessment & Plan Assessment & Plan (1) Cervical myelopathy: Code(s): G95.9 - Disease of spinal cord, unspecified Category: Medical Plan Procedure: C4-5 ACDF Kasandra comes in today for her 1st postoperative appointment after having a C4-[address] Kenny a few weeks ago. She reports that she has essentially remained the same since her surgery. She denies any meaningful improvement of her numbness/tingling, and reports a new dull ache in her proximal muscle groups. In addition to this she reports posterior neck pain. We reviewed the goals of surgery in the context of cervical myelopathy, and she understands that the surgery is meant as a preventative measure to halt symptom progression versus resolve current symptoms. We discussed the postoperative healing course, and answered any questions that she had. No new neurological deficits. The patient ambulates well and rises from a seated position without difficulty. Her anterior incision site is closed and well healed. I would like to follow up with Kasandra again in 6 weeks for her 2nd postoperative visit. We will obtain a set of x-rays at this appointment. Juan Kneny MD,PhD [facility] Medications: New tramadol 50 mg PO Q6H PRN 30 tabs 0RF pain Discontinued oxycodone Partial Fill upon patient request. Discontinued Reason: Doctor's Order 5 mg PO Q4H PRN 20 tabs 0RF pain Coding Level of Care Code Global (97380) Diagnoses Cervical myelopathy G95.9
== END 2025-06-21 09:49 | disposition home or self-care (01) ==
LOC: HO.HNS 09:14
PROVIDERS: Visit Provider Physician Assistant
DX: G95.9 Disease of spinal cord, unspecified (principal)
CPT/HCPCS: 99024

== ENCOUNTER 2025-08-02 09:33 | Outpatient (REF) | payer OTHER, SELFPAY ==
--- OUTSIDE RECORDS SUMMARY | 2024-07-13 08:04 | XMS_ITS | Encounter Summary ---
Author Organization Inés [facility] [place] [address] Care Team Providers Care Oil And Gas Well Treatment Operator Name Role Phone Anahi Jensen NP Primary Care Provider [phone] Encounter Details Date Type Department Care Team (Late st Contact Info) Description 07/13/2024 9:04 AM EDT Hospital Encounter TH HISTORIC ENCOUNTERS EASTERN CONVERSION ONLY Rivera Donald MD Need updated information Social History Tobacco Use Types Packs/Day Years Used Date Smoking Tobacco: Some Days Cigarettes Smokeless Tobacco: Never Alcohol Use Standard Drinks/Week Comments Not Currently 0 (1 standard drink = 0.6 oz pur e alcohol) Housing Instability Answer Date Recorde d Are you worried that in the next 2 months you may not have stable housing? No 10/11/2024 Food Access & Nutrition Answer Date Rec orded Do you have access to a vari ety of food including fruits and vegetables? Yes 10/11/2024 Health Literacy Answer Date Recorded How often do you need to hav e someone help you when you read instructions, pamphlets, or other written material from your doctor or pharmacy? Never 10/11/2024 Caregiver: How often do you need to have someone help you when you read instructions, pamphlets, or other written material from your doctor or pharmacy? Not on file 10/11/2024 Financial Risk Answer Date Recorded How hard is it for you to pa y for the very basics like food, housing, medical care, and air conditioning / heating? Patient declined 10/11/2024 Transportation Answer Date Recorded Has the lack of transportati on kept you from meetings, work, or from getting things needed for daily living? No 10/11/2024 Has the lack of transportati on kept you from medical appointments or from getting medications? Not on file 10/11/2024 Social Isolation Answer Date Recorded How often do you feel lonely or isolated from th ose around you? Never 10/11/2024 Food Risk Answer Date Recorded Within the past 12 months we worried whether our food would run out before we got money to buy more. Patient declined 025 Within the past 12 months th e food we bought just didn't last and we didn't have money to get more. Patient declined 09/14 Dependent Care Answer Date Recorded Do you need help finding or paying for care for your loved ones. For example, director of child welfare services or elderly care for an older adult? No 10/11/2024 Education Answer Date Recorded Do you think completing more education or training, like finishing a GED, going to college, or learning a trade, would be helpful for you? Patient declined 10/11/2024 Employment and Income Answer Date Recor ded During the last four weeks, have you been actively looking for work? No 10/11/2024 Living Situation Answer Date Recorded What is your living situation? Unrecognized valu e 10/11/2024 Comments No Sex and Gender Information Value Date Recorded Sex Assigned at Female 11/09/2022 7:07 AM EST Legal Sex Female 10:19 AM EST Gender Identity Female 11/09/2022 7:07 AM EST Sexual Orientation Straight 11/09/2022 7: 07 AM EST documented as of this encounter Functional Status * Calculated C-SSRS Risk Score (Lifetime/Recent) Answer Date of Assessment Author No Risk Indicated 05/19/2025 10:50 AM Marisela Hammonds, KAILEE * Colbert Suicide Severity Rating Scale (Screener/Recent Self-Report) Question Answer Date of Assessment Author 1. Wish to be (Past 1 Month) No 05/19/2025 10:50 AM Marisela Davidson, KAILEE 2. Non-Specific Active Suicidal Thoughts (Past 1 Month) No 01/09/2025 6:46 PM CHIT Ana Burton RN 6. Suicidal Behavior (Lifetime) No 01/09/2025 6:46 PM EDT Ana Burton RN documented as of this encounter Plan of Treatment Upcoming Encounters Date Type Department Care Team (Late st Contact Info) Description 10/02/2025 8:00 AM EST [facility] Visit [facility] [address] [facility] [address] [place] [phone] Ramirez Suazo MD [address] [place] [address] 11/26/2025 8:30 AM EDT Office Visit Internal Medicine - [facility] [address] [place] [phone] Anahi Jensen NP [address] [place] [address] documented as of this encounter Procedures Procedure Name Priority Date/Time Associated Diagnosis Comments ABDOMEN FLAT AND ERECT Routine 07/13/2024 10:26 AM EDT documented in this encounter Results * DR ABDOMEN FLAT AND ERECT (07/13/2024 10:26 AM EDT) Anatomical Region Laterality Modality Radiographic Ramona ging 07/13/2024 9:09 AM EDT Narrative 07/13/2024 10:26 AM EDT [facility] Diagnostic Imaging Department [address] [place] [address] Patient: KASANDRA ELIZABETH BRENNON /Age/Sex: 1965 - 58 - F Unit#: [id number] Location/Status: SPDIGEN/REG CLI Mnemonic/Ordering Site: [facility] Ordering Physician: RIVERA DONALD MD DR Abdomen Flat and Erect - 07/13/24 - 09 Report Status:Signed HISTORY: The patient is a 58-year-old female with chronic constipation. FINDINGS: Supine and erect views of the abdomen demonstrate minimal levoscoliosis of the thoracolumbar spine, stable since the prior study performed 10/06/2021. The bowel gas pattern is nonobstructive. There is a moderate amount of fecal material throughout the colon from the cecum to the rectum consistent with moderate constipation, a new finding since the prior study. No mass or radiopaque calculus is seen. The metallic navel piercing seen on the prior study has been removed. IMPRESSION: Nonobstructive bowel gas pattern. There is evidence of moderate constipation, a new finding since 10/06/2021. Code 48601 Dictating Physician: LUBA ST MD Electronically Signed by: LUBA ST MD Dic Date/Time: 07/13/24 1024 Sign date/Time: 07/13/24 [address] MD - 07/15/2024 [facility] Diagnostic Imaging Department [address] [place] [address] Patient: KASANDRA ELIZABETH /Age/Sex: 1965 - 58 -F Unit#: [id number] Location/Status: SPDIGEN/REG CLI Mnemonic/Ordering Site: [facility] Ordering Physician: RIVERA DONALD MD DR Abdomen Flat and Erect - 07/13/24 - 0926 Report Status:Signed HISTORY: The patient is a 58-year-old female with chronic constipation. FINDINGS: Supine and erect views of the abdomen demonstrate minimal levoscoliosis of the thoracolumbar spine, stable since the prior studyperformed 10/06/2021. The bowel gas pattern is nonobstructive. There is a moderateamount of fecal material throughout the colon from the cecum to the rectumconsistent with moderate constipation, a new finding since the prior study. No massor radiopaque calculus is seen. The metallic navel piercing seen on the prior study has been removed. IMPRESSION: Nonobstructive bowel gas pattern. There is evidence ofmoderate constipation, a new finding since 10/06/2021. Code 16509 Dictating Physician: LUBA ST MD Electronically Signed by: LUBA ST MD Dic Date/Time: 07/13/24 1024 Sign date/Time: 07/13/24 1026 Rivera Donald MD IMG XR PROCEDURES Final Result documented in this encounter Visit Diagnoses Not on filedocumented in this encounter Care Teams Oil And Gas Well Treatment Operator Relationship Specialty Start Date End Date Anahi Jensen NP [address] [place] [address] PCP - General 10/02/22 documented as of this encounter
--- OUTSIDE RECORDS SUMMARY | 2025-04-09 11:00 | XMS_ITS ---
Author Organization [facility] lisa Sanderson Address [address] [facility] [place] [address] Care Team Providers Care [employer] Field Examiner Name Role Phone Anahi Jensen Primary Care Provider Ceci Galdamez Unavailable [phone] REASON FOR VISIT Skin Problem, Wart(s), Painful Toe(s) Medications Medication SIG (Take, Route, Frequency, Duration) Notes Start Date End Date Status Vitamin B 12 Active Vitamin D3 Not-Takin g Ciclopirox Olamine 0.77 % 1 application to affected area Externally to feet Twice a day; Duration: 30 days Not-Taking Percocet 5-325 MG 1 tablet as needed Orally every 6 hrs; Duration: 2 days 12/18/2022 Not-Taking Ketoconazole 2 % 1 application Apply a thin layer to externally to feet, even between toes Twice a day; Duration: 30 days Active amLODIPine Benzoate Active Encounters Encounter Location Date Provider [facility] [place] [address] 04/09/2025 Ceci Agueor Plantar wart B07.0 ; Other hammer toe(s) (acquired), left foot M20.42 ; Tinea pedis of both feet B35.3 ; Left foot pain M79.672 ; Pain in left toe(s) M79.675 and Heloma molle L84 Assessments Encounter Date Diagnosis (ICD Code) Assessment Notes Treatment Notes Treatment Clinical Notes Section Notes 04/09/2025 Plantar wart (ICD-10 - B07.0) 04/09/2025 Other hammer toe(s) (acquired), left foot (ICD-10 - M20.42) 04/09/2025 Tinea pedis of both feet (ICD-10 - B35.3) 04/09/2025 Left foot pain (ICD-10 - M79.672) 04/09/2025 Pain in left toe(s) (ICD-10 - M79.675) 04/09/2025 Marycruz conroy (ICD-10 - L84) Plan Of Treatment Medication Medication Name Sig Start Date Stop Date Notes Ketoconazole 2 % 1 application Apply a thin layer to externally to feet, even between toes Twice a day; Duration: 30 days Next Appt Details Follow Up: 2 Months, Reason: Procedure Notes * Category Sub-Category Detail Notes Wart Treatment Procedure Verruca, as desc ribed in exam, were debrided to pin- point bleeding margins with sterile 15 surgical blade, silver nitrate chemocautery applied, recomm. immune-boosting meds such as zinc, recomm. follow up with topical chemosurgical agents, , recomm. Wartstick 40 percent Salicylic acid application under occlusion as directed Progress Notes * GLENN EliuB:1965 (60 yo F)Acc No.[id number]:04/09/2025 Progress Notes Patient: Kasandra CAIN Provider: Everton Aguero DPM :1965 A ge:59 Y S ex:Female Date:04/09/2025 Address: [address] [id number] Pcp:Anahi Jensen Subjective: * Chief Complaints: * 1 . Skin Problem. 2. Wart(s). 3. Painful Toe(s). * HPI: S kin problems: Pt States PCP Visit: D ATE 0 02/01/2025 Nature: s caling , redness. Location: I nterspace(s)/Between toe(s) , 4th , Left ,, Bottom, B/L. Duration: s everal months. Onset/Cause: g radual. Course: w orse. Aggravated by: a ny pressure, standing, walking, shoe gear.? Treatments: M edication (Ciclopirox Olamine 0.77% Cream) , is no longer effective. T oe pain: Nature: t enderness. Location: L eft foot, 5th toe. Duration: , several months. Onset/Cause: g radual. Course: w orse. Aggravated by: a ny pressure, shoes. Treatments: r est/alter normal daily activity, change in shoes. * Medical History: * Medications: T aking amLODIPine Benzoate , Taking Vitamin B 12 , Taking Ketoconazole 2 % Cream 1 application Apply a thin layer to externally to feet, even between toes Twice a day , Not-Taking/PRN Vitamin D3 , Not-Taking/PRN Ciclopirox Olamine 0.77 % Cream 1 application to affected area Externally to feet Twice a day , Not-Taking/PRN Percocet 5-325 MG Tablet 1 tablet as needed Orally every 6 hrs Objective: * Vitals: * Examination: D ermatologic: SKIN FINDINGS: Skin shows sign(s) of, erythema, scaling, in a moccasin fashion, no fissure(s) present, B/L,interdigital maceration left 4th webspace and keratoma medial PIPJ T4. VERRUCA: Gonzalo aponte a Single , multi-loculated , mosaic-patterned, round, raised, flat- topped, petechial bleeding papule(s), with cauliflower appearance and interruption of skin lines, pain to lateral compression, and size estimated at 3 mm diameter, plantar Forefoot, LEFT. O rthopedic: MUSCLE STRENGTH: 5 /5 all groups in a symmetrical fashion, B/L. DIGITAL DEFORMITIES: D igital contracture, PIPJ, 2-5 B/L, incompl-reducible with WB, or to push-up test, no over, nor underlapping. FOOTWEAR EVALUATION: shoe gear properties exacerbate patients foot/toe deformity. X -Rays - IMAGING REPORT: Views: 2 views of toes reviewed report on pt's phone. Findings: normal bone and soft tissue density consistent for patients age and sex. Fracture: Negative fractures identified. G eneral Examination: GENERAL APPEARANCE: Gonzalo aponte a pleasant, alert, well nourished, well-developed, well hydrated individual, who demonstrates proper attention to hygiene/body habitus, and is in no acute distress, Pt serves as own historian for office visit today. ORIENTED: p erson, place, and time. V ascular: DP PULSES (B): 3 /4, B/L. PT PULSES (B): 3 /4, B/L. CAPILLARY FILL TIME: i mmediate, all digits, B/L. TROPHIC CONDITION-TEXTURE/ELASTICITY/TURGOR/HAIR GROWTH (B):?normal, B/L. TEMPERTURE GRADIENT (C): n ormal, warm to cool, proximal to distal, B/L, B/L. PIGMENTATION: n ormal, B/L. EDEMA (C): a bsent, B/L. N eurological: SENSORY: N eurological exam reveals intact sensorium, pain sensation normal, vibration sensation intact, pinprick sensation is normal in the lower extremities, Pt denies, anesthesia, burning, paresthesia, tingling, B/L. Assessment: * Assessment: 1. P lantar wart - B07.0 2 . O ther hammer toe(s) (acquired), left foot - M20.42 (Primary) S pecify :Acute problem, Complicated w/ Multiple Tx Options(4) 3 . T inea pedis of both feet - B35.3 S pecify :Acute problem, Uncomplicated (3),Rx drug management (4) 4 . L eft foot pain - M79.672 5 . P ain in left toe(s) - M79.675 6 . H eloma molle - L84 Plan: * Treatment: * Procedures: W art Treatment: Procedure V erruca, as described in exam, were debrided to pin-point bleeding margins with sterile 15 surgical blade, silver nitrate chemocautery applied, recomm. immune-boosting meds such as zinc, recomm. follow up with topical chemosurgical agents, , recomm. Wartstick 40 percent Salicylic acid application under occlusion as directed. * Procedure Codes: 1 7110 Wart Destruction, 1-14, Modifiers: XS * Preventive Medicine: Counseling: D iscussion: - 14: Office or other outpatient visit for the evaluation and management of an established patient, which required a medically appropriate history and/or examination and MODERATE level of DECISION MAKING for: 1 OR MORE CHRONIC PROBLEM(S) THATS WORSENING, 2 STABLE CHRONIC PROBLEMS, A NEWLY DIAGNOSED PROBLEM WITH UNCERTAIN PROGNOSIS, AN ACUTE COMPLICATED INJURY WITH MULTIPLE TREATMENT OPTIONS, OR AN ACUTE PROBLEM WITH ACCOMPANYING SYSTEMIC SYMPTOMS, THAT POSE(S) A MODERATE RISK OF MORBIDITY. THIS CONDITION MAY ALSO INCLUDE RX DRUG MANAGEMENT, OR A DECISON FOR MINOR SURGERY. The visit on the day of the encounter encompassed interpreting the data and educating the patient as to the nature of their condition, treatment options available according to their individual PMH, meds, allergies, and overall health/living conditions, as well as any potential risks or complications that may occur from a failure to adhere to, and participate in, the recommended course of therapy. The discussion included a complete verbal, and/or written explanation of the examination results, any x-rays taken, the proposed diagnosis, and outline of the treatment plan. A schedule for future care needs was also explained. The patient verbalized an understanding of the instructions at this time and agreed to be an active participant in their treatment. If the patient should think of any questions or concerns after the visit, I have encouraged the patient to call the office. D igital Surgery: D igital surgery was discussed with the patient, including the risks of surgery(below), vs not having surgery (persistent pain, deformity, risk for skin ulceration/infection, loss of toe), the potential surg complications, the anesthesia, and the usual post-op course. No guarentees were given. We discussed the potential procedure complications including, but not limited to: pain, swelling, bleeding, scarring, numbness, infection, delayed/non healing, floppy/unstable/shorthened toe, recurrence, failure of the procedure, overcorrection leading to plantarflexed/downward positioned toe, recurrence, need for further surgery, as well as the possibility for loss of the toe itself. We discussed the use of local anesthesia, and the usual post-op course for healing. No guarentees were given. The patient verbally indicated a full understanding of the above conversation, and any other of their questions were answered to their satisfaction. Alternatives to the procedure were also discussed, including conservative care. I also discussed the usual post-operative course and gave no guarantees regarding outcome. D igital Treatment: H T- I explained to the patient the possible etiologies of Hammertoes, including genetics/foot type/shoegear/activity level/exercise routine and the risks/benefits of all the different treatment options for their pain including: No treatment at all, Rest, Ice, New/supportive/wider/deeper Shoe gear, Digital Padding/Strapping/Taping/Bracing/Gel protective sleeves, Foot/Ankle AFO Bracing, Stretching exercises, Deep Tissue Massage, Arch support/shoe inserts with splay metatarsal padding, and Custom orthoses. I insisted that any digital devices be removed daily and not worn overnight for safety. The patient is to carefully examine the toes daily for any skin irritation while using any splinting or padding device. The advantages and disadvantages of each option were discussed and the patients questions re: shoe gear, padding, custom vs prefabricated inserts, activity level, and consistency in home treatment regimens for optimal success were answered to their verbally confirmed satisfaction. S hoe Gear Counseling: T he patient and I reviewed the types of shoes they should be wearing. My recommendation included obtaining a well-fitted shoe with a good supportive, non-foldable nor twistable sole, plenty of toe/room for the forefoot, and proper arch support. Based on todays examination, I recommended the patient look for new shoes, by having their feet professionally measured. We discussed that generally the best time of the day for a shoe fitting is the afternoon. Different shoes types and brands to best match the patients occupation and vocation were discussed. Specific brand selection will be up to the patient, their individual foot condition/deformities, and fit. The patient and I reviewed the standard new shoe break in period by wearing them for a few hours a day while checking for redness or sores as wear time is increased. The patient verbally confirmed to understanding the information discussed. Jostin Gloria: T ioana patient was counseled on the diagnosis, potential etiologies, and treatment options for their skin condition. We discussed the risks and benefits of each option from performing no treatment, to utilizing OTC topical skin creams, prescription topical creams, customized compounded topical medications, and, if necessary, to utilize oral antifungal therapy. We discussed the advantages and disadvantages of each possible treatment and importance for adherence to all the recommended therapies for optimum success and avoid potential complications such as open sore/infection/possible hospitalization. We discussed the potential effectiveness of each topical preparation as well as each ones possible side effects and/or patient medication interactions if oral therapy is selected. Patient questions re: the advantages and disadvantages of each treatment choice, medication use/dosage, successful outcomes, and application consistency were reviewed and the patient verbalized that all answers were clearly understood. The patient was told they can help alleviate symptoms by utilizing moisture absorbant innersoles with activated charcoal and baking soda, applying antifungal sprays daily, aerating toe web spaces at night by putting cotton or lambs wool between the toes, alternating shoe gear daily if possible so they can dry out, changing socks at least once during the day, wearing well-ventilated shoes or sandals. The patient has decided to apply antifungal skin creams to their feet as directed. Rx was sent to their pharmacy at the time of visit. X -rays: W ould like to take new Xrays or be able to see images from recent images, pt states she will bring the images to her next visit. Screening/Special Tests: F all Risk Screening: N o falls in the past year F ALLS: Screening for Future Fall Risk Have you had any falls with injury in the past year? N o * Follow Up: 2 Months * Images: * The named appointment provid er may or may not be the originator of this progress note, and it is not deemed complete until electronically signed by the appointment provider. Sign off status: Pending * Provider: Everton Aguero DPM Date: 0 04/09/2025 Generated for Nick ma/Dangelo/Baljititting on: 1 10/03/2024 10:06 AM EST History and Physical Notes * HPI (History of Present Illness) Category Sub-Category Detail Notes Category Not es Toe pain Nature: tenderness Location: Left foot, 5th toe Duration: , several months Onset/Cause: gradual Course: worse Aggravated by: any pressure, shoes Treatments: rest/alter normal da simon activity, change in shoes Skin problems Nature: scaling , redness Location: Interspace(s)/Betwee n toe(s) , 4th , Left ,, Bottom, B/L Duration: several months Onset/Cause: gradual Course: worse Aggravated by: any pressure, standi ng, walking, shoe gear Treatments: Medication (Ciclopir ox Olamine 0.77% Cream) , is no longer effective Pt States PCP Visit: DATE: 02/01/2025 Examination Category Sub-Category Detail Notes Category Not es Neurological SENSORY: Neurological exa m reveals intact sensorium, pain sensation normal, vibration sensation intact, pinprick sensation is normal in the lower extremities, Pt denies, anesthesia, burning, paresthesia, tingling, B/L Dermatologic SKIN FINDINGS: Skin shows sign( s) of, erythema, scaling, in a moccasin fashion, no fissure(s) present, B/L,interdigital maceration left 4th webspace and keratoma medial PIPJ T4 VERRUCA: Reveals a Single , m ulti-loculated , mosaic-patterned, round, raised, flat-topped, petechial bleeding papule(s), with cauliflower appearance and interruption of skin lines, pain to lateral compression, and size estimated at 3 mm diameter, plantar Forefoot, LEFT Orthopedic FOOTWEAR EVALUATION: shoe gear p roperties exacerbate patients foot/toe deformity DIGITAL DEFORMITIES: Digital contracture , PIPJ, 2-5 B/L, incompl-reducible with WB, or to push-up test, no over, nor underlapping MUSCLE STRENGTH: 5/5 all groups in a symmetrical fashion, B/L General Examination GENERAL APPEARANCE: Reveals a pleasant, alert, well nourished, well-developed, well hydrated individual, who demonstrates proper attention to hygiene/body habitus, and is in no acute distress, Pt serves as own historian for office visit today ORIENTED: person, place, and t derick Vascular DP PULSES (B): 3/4, B/L PT PULSES (B): 3/4, B/L CAPILLARY FILL TIME: immediate, all digi ts, B/L TEMPERTURE GRADIENT (C): normal, warm to cool, proximal to distal, B/L, B/L TROPHIC CONDITION-TEXTURE/ELASTICITY/TURGOR/HAIR GROWTH (B): normal, B/L EDEMA (C): absent, B/L PIGMENTATION: normal, B/L X-Rays - IMAGING REPORT Findings: normal b one and soft tissue density consistent for patients age and sex Fracture: Negative fractures i dentified Views: 2 views of toes revi ewed report on pt's phone
--- NOTE | ~2025-08-02 | XR_ITS ---
EXAMINATION: XR CERVICAL SPINE CLINICAL INFORMATION: G95.9 - Disease of spinal cord, unspecified COMPARISON: Correlated to MRI from an outside institution dated April 01, 2025. TECHNIQUE: Lateral views in neutral, flexion and extension position. AP view. FINDINGS: Craniocervical junction is intact. Intervertebral body disc spacer placement C4-5. Marginal osteophyte formation and endplate sclerosis and decreased intervertebral disc height at C3-4 C6-7 and to a lesser extent C5-6. 1 mm retrolisthesis at C3-4 in neutral position which reduces in flexion position. No acute cortical disruption. No lytic or blastic lesions. XR/XR cervical spine 4V IMPRESSION: Concerning instability at C3-4. 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 Electronically signed by: Jb Head MD 08/02/2025 11:14 AM NEY
--- OUTSIDE RECORDS SUMMARY | 2025-08-03 10:07 | XMS_ITS | Clinical Summary ---
Author Organization [facility] Address [address] [place] [address] Phone Care Team Providers Care Emergency Room Orderly Name Role Phone Anahi Jensen NP Primary Care Provider [phone] Allergies No known active allergies Medications amLODIPine (NORVASC) 5 mg tablet TAKE 1 TABLET BY MOUTH DAILY 30 tablet 5 5 Active varenicline tartrate (CHANTIX CHRISTOPHER) 0.5 mg (11)- 1 mg (42) tablet Use as directed on package instructions, try to quit smoking after 1 week. 53 tablet 5 08/26/20 25 Active Linzess 290 mcg capsule Take 1 capsule (290 mcg total) by mouth 1 (one) time each day before breakfast. 5 Active pantoprazole (PROTONIX) 40 mg EC tabletIndication s:Gastroesophage al reflux disease, unspecified whether esophagitis present Take 1 tablet (40 mg total) by mouth 1 (one) time each day before breakfast. Do not crush, chew, or split. 90 each 5 09/20/19 26 Active cetirizine (ZyrTEC) 10 mg tablet Take 1 tablet (10 mg total) by mouth 1 (one) time each day. 30 each 2 5 09/30/19 26 Active predniSONE (DELTASONE) 20 mg tablet Take 3 tabs (60mg) daily for 5 days, then take 2 tabs (40mg) daily for 2 days, then take 1 tab (20mg) daily for 2 days. 21 tablet 5 07/11/20 Active Problems Problem Noted Date Diagnosed Date Benign essential microscopic hematuria 5 Overview (05/28/2025): S/p urological work up with benign CT abd/pelvis and cystoscopy. Ulcerative colitis ([facility] V24, [facility] V28) Dysphagia 10/27/2024 Gastroesophageal reflux disease without esophagi tis 10/27/2024 Rhinitis 10/11/2024 Screening for metabolic disorder 10/11/2024 Primary hypertension 04/25/2024 Non-toxic multinodular goiter 05/04/2023 Numbness of hand 05/04/2023 Osteoarthritis 05/04/2023 Paresthesia of skin 05/04/2023 Thyroid nodule 09/08/2022 Acute medial meniscus tear of right knee 022 Effusion of right knee joint 06/12/2022 Sprain of medial collateral ligament of left kne e 06/12/2022 Acute costochondritis 07/16/2021 Chest pain at rest 07/16/2021 GERD (gastroesophageal reflux disease) Assessment & Plan (01/29/2025 11:48 AM EDT): Stable at this time. Continue PPI as directed. Other somatoform disorders 06/14/2020 Overview (01/19/2025): Psychogenic dysphagia, including 'globus hystericus'; Note: Date Diagnosed: 06/14/2020 12:03 PM (F45.8) Encounters Date Type Department Care Team Description 07/11/2025 Lab Requisition [facility] - Main Lab [address] [facility] [place] [address] Dwight Perez PA Benign essential microscopic hematuria 07/10/2025 Telephone [facility] [address] [facility] [address] [place] [address] Ramirez Suazo MD 07/08/2025 10:04 AM EDT - 07/08/2025 11:59 PM EDT Hospital Encounter MRI [address] [place] [phone] White matter lesion of central nervous system; Chronic migraine without aura without status migrainosus, not intractable Discharge Disposition: Home or Self Care 07/02/2025 2:15 PM EDT Office Visit Walk-In Clinic - [address] [phone] Marvin Wolfe NP Contact dermatitis, unspecified contact dermatitis type, unspecified trigger (Primary Dx) 06/19/2025 8:00 AM EDT Office Visit [facility] [address] [facility] [address] [place] [phone] Ramirez Suazo MD Migraine with aura and without status migrainosus, not intractable (Primary Dx); Facial paresthesia; White matter lesion of central nervous system 05/28/2025 1:30 PM EDT Office Visit Internal Medicine - [address] [phone] Anahi Jensen NP Adult general medical examination (Primary Dx); Primary hypertension; Gastroesophageal reflux disease without esophagitis; Spinal stenosis of cervical region; Benign essential microscopic hematuria 05/25/2025 11:40 AM EDT Office Visit Gastroenterology - [address] [facility] [address] [facility] [address] [place] [address] Loraine Helm MD Right lower quadrant abdominal pain (Primary Dx); Irritable bowel syndrome with constipation 05/24/2025 Telephone Gastroenterology - [address] [facility] [address] [facility] [address] [place] [phone] Danii Nelson PA 05/19/2025 12:18 PM EDT - 05/19/2025 6:45 PM EDT Emergency Emergency [address] [place] [phone] Neville Martinez MD Colitis (Primary Dx) Discharge Disposition: Home or Self Care 05/18/2025 2:30 PM EDT Office Visit Internal Medicine - [address] [phone] Sudarshan Phillips NP Acute right-sided low back pain without sciatica (Primary Dx); Elevated blood sugar; Primary hypertension 05/18/2025 Telephone Internal Medicine - [address] [phone] Sudarshan Phillips NP from Last 3 Months Immunizations Immunization Administration Dates Next Due Influenza Quadravalent, MDCK , 0.5ml, preservative free (Flucelvax) 6mo and older 05/14/2020 Influenza trivalent, 0.5mL, preservative free (Fluarix; FluLaval; Fluzone) ages 6mo and older (Afluria) 3 years and older 05/26/2024,07/24/2018,08/19/2016 Influenza, Unspecified 06/13/2022 Pneumococcal polysaccharide 23 valent (Pneumovax 23) 2yo and older 05/14/2020 Tdap Tetanus diptheria acell ular pertussis (Boostrix; Adacel) 7yo and older 11/06/2022 Surgical History Surgery Date Site/Laterality Comments OTHER SURGICAL HISTORY PROCEDURE: HISTORICAL LAPAROSCOPIC HYSTERECTOMY WITH OR WITHOUT BSO COLONOSCOPY 11/17/2023 benign mucosa negative for dysplasia. 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 Nontoxic single thyroid nodule D X:Nontoxic single thyroid nodule History of breast lift DX:Histor y of breast lift; COMMENT: in 2021 Family History Medical History Relation Name Comments Hyperlipidemia Mother Hypertension Mother Stroke Mother Thyroid disease Mother Colon cancer Neg Hx Relation Name Status Comments Mother Social History Tobacco Use Types Packs/Day Years Used Date Smoking Tobacco: Some Days Cigarettes Smokeless Tobacco: Never Tobacco Cessation:Ready to Q uit: Not Asked; Counseling Given: Not Answered Alcohol Use Standard Drinks/Week Comments Not Currently [...] for your loved ones. For example, child welfare worker or elderly care for an older adult? [...] Orientation Straight 11/09/2022 7: 07 AM EST Obstetrics History Last Filed Vital Signs Vital Sign Reading Time Taken Comments Blood Pressure 123/80 07/02/2025 2:23 PM EDT Pulse 90 07/02/2025 2:23 PM EDT Temperature 36.7 C (98.1 F) 07/02/2025 2:23 PM EDT Respiratory Rate 20 07/02/2025 2:23 PM EDT Oxygen Saturation 99% 07/02/2025 2:23 PM EDT Inhaled Oxygen Concentration - - Weight 57.6 kg (127 lb) 06/19/2025 8:10 AM EDT Height 154.9 cm (5' 1 ) 06/19/2025 8:10 AM EDT Body Mass Index 24 06/19/2025 8:10 AM EDT Plan of Treatment Upcoming Encounters Date Type Department Care Team (Late st Contact Info) Description 10/02/2025 8:00 AM EST Office Visit [facility] [address] [facility] [address] [place] [phone] Ramirez Suazo MD [address] [place] [address] 11/26/2025 8:30 AM EDT Office Visit [facility] Medicine - [facility] [address] [place] [phone] Anahi Jensen NP [address] [place] [address] Health Maintenance Due Date Last Done Comments Zoster Vaccines (1 of 2) 2016 Pneumococcal Vaccine: 50+ Years (2 of 2 - PCV) 05/14/2021 05/14/2020 COVID-19 Vaccine (2 - season) 2025 11/06/2020 Influenza Vaccine (#1) 2025 4, 05/26/2024, 06/13/2022, Additional history exists Social Influencers of Health Screening 10/11/2025 10/11/2024 Breast Cancer Screening 03/13/2026 03/13/20 24, 03/08/2023, 11/11/2021, Additional history exists Hypertension/CHF/CAD Annual BMP Blood Test 05/19/2026 05/19/2025, 05/18/2025, 01/09/2025, Additional history exists Cholesterol Screening (Lipid Panel) 02/10/2028 02/09/2023 DTaP,Tdap,and Td Vaccines (2 - Td or Tdap) 11/06/2032 11/06/2022 Colorectal Cancer Screening: Colonoscopy 01/30/2035 01/30/2025, 06/05/2020 RSV Immunization Adult Patients (1 - 1-dose 75+ series) 2041 Hepatitis C Screening Completed 11/06/2022 Depression Screening Completed 11/29/2024 HIB Vaccines Aged Out No longer eligi ble based on patient's age to complete this topic HIV Screening Discontinued HPV Vaccines Aged Out No longer eligi ble based on patient's age to complete this topic Hepatitis A Vaccines Aged Out No long er eligible based on patient's age to complete this topic Hepatitis B Vaccines Discontinued IPV Vaccines Aged Out No longer eligi ble based on patient's age to complete this topic MMR Vaccines Aged Out No longer eligi ble based on patient's age to complete this topic Meningococcal ACWY Vaccine Aged Out N o longer eligible based on patient's age to complete this topic Meningococcal B Vaccine Aged Out No l onger eligible based on patient's age to complete this topic RSV Immunization Patients Under 20 months Aged Out No longer eligible based on patient's age to complete this topic Varicella Vaccines Aged Out No longer eligible based on patient's age to complete this topic Procedures Procedure Name Priority Date/Time Associated Diagnosis Comments MR BRAIN WO CONTRAST Routine 07/08/2025 11:08 AM EDT White matter lesion of central nervous system Chronic migraine without aura without status migrainosus, not intractable NON-GYNECOLOGIC CYTOLOGY Routine 06/22/2025 12:00 AM EDT Benign essential microscopic hematuria ELECTROLYTE PANEL Routine 06/19/2025 8:4 6 AM EDT Migraine with aura and without status migrainosus, not intractable Facial paresthesia White matter lesion of central nervous system URINALYSIS WITH REFLEX MICROSCOPIC STAT 05/19/2025 5:27 PM EDT URINALYSIS WITH REFLEX MICROSCOPIC STAT 05/19/2025 5:27 PM EDT US ABDOMEN LIMITED STAT 05/19/2025 5: [address] ABDOMEN PELVIS W CONTRAST STAT 05/19/2025 2:48 PM EDT CBC WITH AUTO DIFFERENTIAL STAT 05/19/2025 10:47 AM EDT LIPASE STAT 05/19/2025 10:47 AM EDT COMPREHENSIVE METABOLIC PANEL STAT 05/19/2025 10:47 AM EDT CBC AND DIFFERENTIAL STAT 05/19/2025 10:47 AM EDT SIDDIQUI URINE CULTURE TUBE Routine 05/18/2025 3:29 PM EDT Acute right-sided low back pain without sciatica URINALYSIS WITH REFLEX MICROSCOPIC AND CULTURE Routine 05/18/2025 3:29 PM EDT Acute right-sided low back pain without sciatica CBC WITH AUTO DIFFERENTIAL Routine 05/18/2025 3:29 PM EDT Acute right-sided low back pain without sciatica URINALYSIS WITH REFLEX MICROSCOPIC AND CULTURE Routine 05/18/2025 3:29 PM EDT Acute right-sided low back pain without sciatica BASIC METABOLIC PANEL Routine 05/18/2025 3:29 PM EDT Acute right-sided low back pain without sciatica CBC AND DIFFERENTIAL Routine 05/18/2025 3:29 PM EDT Acute right-sided low back pain without sciatica HEMOGLOBIN A1C Routine 05/18/2025 3:29 PM EDT Elevated blood sugar EXTERNAL COLONOSCOPY REPORT Routine 01/30/2025 10:12 AM EDT ALICE SCREENING DIGITAL Routine 03/13/2024 11:14 AM EDT Encounter for screening mammogram for malignant neoplasm of breast LIPID PANEL Routine 02/09/2023 HM HEPATITIS C SCREENING Routine 11/06/2022 from Last 3 Months or Most Recently Relevant to Health Maintenance Results * MR Brain wo Contrast (07/08/2025 11:08 AM EDT) Anatomical Region Laterality Modality Head and Neck Magnetic Resonan ce 07/10/2025 6:58 PM EDT Impressions 07/10/2025 7:10 PM EDT 1. No acute territorial infarct, mass effect, or intracranial hemorrhage. 2. Stable scattered periventricular and subcortical white matter T2/FLAIR hyperintensities. -------- FINAL REPORT -------- Dictated By: Teri Calloway Dictated Date: 07/10/2025 18:58 ET Assigned Physician: Teri Calloway Reviewed and Electronically Signed By: Teri Calloway Signed Date: 07/10/2025 19:10 ET Workstation ID: [id number] Transcribed By: Self Edit Transcribed Date: 07/10/2025 18:58 ET Narrative 07/10/2025 7:10 PM EDT HISTORY: perioral numbness , white matter lesion. TECHNIQUE: Routine MRI of the brain without contrast. COMPARISON: 12/25/23. FINDINGS: No acute territorial infarct, mass effect, or intracranial hemorrhage. Stable scattered periventricular and subcortical white matter T2/FLAIR hyperintensities. No hydrocephalus. Trace paranasal sinus disease. Mastoid air cells are clear. No calvarial fracture. Orbits unremarkable. Procedure Note Teri Calloway MD - 07/10/2025 HISTORY: perioral numbness , white matter lesion. TECHNIQUE: Routine MRI of the brain without contrast. COMPARISON: 12/25/23. FINDINGS: No acute territorial infarct, mass effect, or intracranial hemorrhage. Stable scattered periventricular and subcortical white matter T2/FLAIRhyperintensities. No hydrocephalus. Trace paranasal sinus disease. Mastoid air cells are clear. No calvarial fracture. Orbits unremarkable. IMPRESSION: 1. No acute territorial infarct, mass effect, or intracranialhemorrhage. 2. Stable scattered periventricular and subcortical white matter T2/FLAIRhyperintensities. -------- FINAL REPORT -------- Dictated By: Teri Calloway Dictated Date: 07/10/2025 18:58 ET Assigned Physician: Teri Calloway Reviewed and Electronically Signed By: Teri Calloway Signed Date: 07/10/2025 19:10 ET Workstation ID: [id number] Transcribed By: Self Edit Transcribed Date: 07/10/2025 18:58 ET Ramirez Suazo MD IM MRI PROCEDURES Final Result * Non-gynecologic cytology (06/22/2025 12:00 AM EDT) Final Diagnosis Urine, Voided ([id number]): Negative for high grade urothelial carcinoma. Results of UroV[employer]ion fluorescence in situ hybridization (FISH) testing: CEP3: Normal CEP7: Normal CEP17: Normal LSI 9p21: Normal Interpretation: Normal profile Controls stained appropriately. Note: The results are intended as a screening device and should be interpreted in association with other clinical and pathological findings. 07/17/2025 10:31 AM [facility] at 1031 EST Specimen A Adequacy Satisfactory for evaluation 07/17/2025 10:31 AM [facility] Clinical Information Benign essential microscopic hematuria R31.1 Urine Cytology/FISH (now) 07/17/2025 10:31 AM [facility] Gross Description A. Urine, Voided, ([id number]): Received one ThinPrep slide for cytology and one ThinPrep slide for UroVysion FISH 07/17/2025 10:31 AM EST [facility] Disclaimer Unless otherwise specified, all tissue is 10% NB formalin fixed and paraffin embedded. Technical pathology services provided by [facility] at [address], [place] [address] (CLIA #[id number]/Pat Nevarez MD, Cassandra Architect) 07/17/2025 10:31 AM EST [facility] Urine Urine specimen from urethra / Unknown 06/22/2025 07/11/2025 12:00 PM EDT us Dwight OWENS LAB CYTOLOGY ORDERABLES Final Result Performing Organization Address City/[facility]/ZIP Co de Phone Number [facility] [address] [place] [address], [place] [phone] * Electrolyte panel (06/19/2025 8:46 AM EDT) Sodium 142 133 - 145 mmol/L LAB CHEMISTRY METHOD 06/19/2025 10:38 AM EDT [facility] Potassium 3.5 3.5 - 5.5 mmol/L LAB CHEMISTRY METHOD 06/19/2025 10:38 AM EDT [facility] Chloride 107 96 - 110 mmol/L LAB CHEMISTRY METHOD 06/19/2025 10:38 AM EDT [facility] CO2 29 21 - 32 mmol/L LAB CHEMISTRY METHOD 06/19/2025 10:38 AM EDT [facility] Anion Gap 6 3 - 11 LAB CHEMISTRY METHOD 06/19/2025 10:38 AM EDT [facility] Blood Venous blood specimen / Unknown Venipuncture / Unknown 06/19/2025 8:46 AM EDT 06/19/2025 8:46 AM EDT Ramirez Suazo MD LAB BLOOD ORDERABLES Fin al Result [facility] [address] [place] [address], [place] [phone] * (ABNORMAL) Urinalysis with reflex microscopic (05/19/2025 5:27 PM EDT) Specific [place] Urine >1.045(H) 1.003 - 1.030 LAB URINALYSIS - AUTOMATED METHOD 05/19/2025 5:49 PM [facility] pH, Urine 6.0 5.0 - 8.0 pH LAB URINALYSIS - AUTOMATED METHOD 05/19/2025 5:49 PM [facility] Leukocytes, Urine Negative Negative LAB URINALYSIS - AUTOMATED METHOD 05/19/2025 5:49 PM [facility] Nitrite, Urine Negative Negative LAB URINALYSIS - AUTOMATED METHOD 05/19/2025 5:49 PM [facility] Protein, Urine Negative <=Trace mg/dL LAB URINALYSIS - AUTOMATED METHOD 05/19/2025 5:49 PM [facility] Glucose, Urine Negative Negative mg/dL LAB URINALYSIS - AUTOMATED METHOD 05/19/2025 5:49 PM [facility] Ketones, Urine Negative Negative mg/dL LAB URINALYSIS - AUTOMATED METHOD 05/19/2025 5:49 PM [facility] Urobilinogen , Urine 0.2 0.2 - 1.0 mg/dL LAB URINALYSIS - AUTOMATED METHOD 05/19/2025 5:49 PM [facility] Bilirubin, Urine Negative Negative LAB URINALYSIS - AUTOMATED METHOD 05/19/2025 5:49 PM [facility] Blood, Urine Trace(A) Negative LAB URINALYSIS - AUTOMATED METHOD 05/19/2025 5:49 PM [facility] RBC, Urine 7.3(H) 0 - 4 /HPF LAB URINALYSIS - AUTOMATED METHOD 05/19/2025 5:49 PM EDT [facility] WBC, Urine 0.8 0 - 4 /HPF LAB URINALYSIS - AUTOMATED METHOD 05/19/2025 5:49 PM EDT [facility] Squamous Epithelial, Urine 17 0 - 60 /LPF LAB URINALYSIS - AUTOMATED METHOD 05/19/2025 5:49 PM EDT [facility] Bacteria, Urine Negative Negative /HPF LAB URINALYSIS - AUTOMATED METHOD 05/19/2025 5:49 PM EDT [facility] Hyaline Casts, Urine 0.4 0 - 3 /LPF LAB URINALYSIS - AUTOMATED METHOD 05/19/2025 5:49 PM EDT [facility] Urine Urine specimen obtained by clean catch procedure / Unknown Non-blood Collection / Unknown 05/19/2025 5:27 PM EDT 05/19/2025 5:33 PM EDT us Neville Martinez MD LAB URINE ORDERABLES Final Result [facility] [address] [place] [address], [place] [phone] * US Abdomen Limited (05/19/2025 5:17 PM EDT) Anatomical Region Laterality Modality Body Ultrasound 05/19/2025 5:29 PM EDT Impressions 05/19/2025 5:29 PM EDT Impression: Unremarkable right upper quadrant ultrasound. This document has been electronically signed by: Ton Mayberry MD on 05/19/2025 17:29:32 Narrative 05/19/2025 5:29 PM EDT INDICATION: Eval for gallbladder disease US limited to right upper quadrant Comparison: Same-day CT abdomen and pelvis Findings: Liver is normal size and reveals homogeneous echotexture. No focal hepatic lesions. No intrahepatic ductal dilatation. Right lobe length measures 16.4 cm. Portal vein reveals hepatopetal flow. Common bile duct measures 3 mm. Gallbladder appears unremarkable. No sonographic Weber's sign. Right kidney is normal texture. No hydronephrosis. Right renal length is 12.1 cm. Procedure Note Ton Mayberry MD - 05/19/2025 INDICATION: Eval for gallbladder disease US limited to right upper quadrant Comparison: Same-day CT abdomen and pelvis Findings: Liver is normal size and reveals homogeneous echotexture. No focalhepatic lesions. No intrahepatic ductal dilatation. Right lobe length measures 16.4 cm. Portal vein reveals hepatopetal flow. Common bile duct measures 3 mm. Gallbladder appears unremarkable. No sonographic Weber's sign. Right kidney is normal texture. No hydronephrosis. Right renal length is 12.1 cm. IMPRESSION: Impression: Unremarkable right upper quadrant ultrasound. This document has been electronically signed by: Ton Mayberyr MD on 05/19/2025 17:29:32 us Neville Mratinez MD IMG US PROCEDURES Final Res ult * CT Abdomen Pelvis w Contrast (05/19/2025 2:48 PM EDT) Anatomical Region Laterality Modality Body Computed Tomogra phy 05/19/2025 3:01 PM EDT Impressions 05/19/2025 3:07 PM EDT No acute findings in the abdomen and pelvis. The appendix is not definitely identified, but there is no evidence of an inflammatory process in the right lower quadrant. -------- FINAL REPORT -------- Dictated By: Caleb Walden Dictated Date: 05/19/2025 15:01 ET Assigned Physician: Caleb Walden Reviewed and Electronically Signed By: Caleb Walden Signed Date: 05/19/2025 15:07 ET Workstation ID: [id number] Transcribed By: Self Edit Transcribed Date: 05/19/2025 15:01 ET Narrative 05/19/2025 3:07 PM EDT PROCEDURE: Contrast enhanced CT of the abdomen and pelvis. HISTORY: RLQ abdominal pain, appendicitis suspected (Age >= 14y). COMPARISON: 10/31/2023. TECHNIQUE: Contrast-enhanced CT of the abdomen and pelvis with coronal and sagittal reformats. IV contrast dose: 90 mL ISOVUE-370. Dose length product: 418 mGy-cm. FINDINGS: Lung bases: Dependent linear groundglass opacities in both lower lobes suggestive of atelectasis. Cardiac: Normal heart size. No coronary artery calcification. Liver: No focal lesion. Portal veins are patent. Biliary: Normal gallbladder and biliary tree. Pancreas: Normal. Spleen: Normal. Adrenal glands: Normal. Kidneys: Possible punctate nonobstructing calculus in the upper pole of the left kidney. Normal appearance of the ureters. Retroperitoneum: No mass or adenopathy. Abdominal vasculature: Moderate multifocal atherosclerotic calcifications. Bowel/mesentery: No obstruction or adenopathy. No mass or ascites. The appendix is not identified. No evidence of an inflammatory process in the right lower quadrant. Abdominal wall: Normal. Pelvic nodes: No adenopathy. Pelvic organs: Normal. Bones: Mild degenerative changes of the spine. Procedure Note Caleb Walden MD - 05/19/2025 PROCEDURE: Contrast enhanced CT of the abdomen and pelvis. HISTORY: RLQ abdominal pain, appendicitis suspected (Age >= 14y). COMPARISON: 10/31/2023. TECHNIQUE: Contrast-enhanced CT of the abdomen and pelvis with coronal andsagittal reformats. IV contrast dose: 90 mL ISOVUE-370. Dose length product: 418 mGy-cm. FINDINGS: Lung bases: Dependent linear groundglass opacities in both lower lobessuggestive of atelectasis. Cardiac: Normal heart size. No coronary artery calcification. Liver: No focal lesion. Portal veins are patent. Biliary: Normal gallbladder and biliary tree. Pancreas: Normal. Spleen: Normal. Adrenal glands: Normal. Kidneys: Possible punctate nonobstructing calculus in the upper pole ofthe left kidney. Normal appearance of the ureters. Retroperitoneum: No mass or adenopathy. Abdominal vasculature: Moderate multifocal atheroscleroticcalcifications. Bowel/mesentery: No obstruction or adenopathy. No mass or ascites. Theappendix is not identified. No evidence of an inflammatory process in theright lower quadrant. Abdominal wall: Normal. Pelvic nodes: No adenopathy. Pelvic organs: Normal. Bones: Mild degenerative changes of the spine. IMPRESSION: No acute findings in the abdomen and pelvis. The appendix is notdefinitely identified, but there is no evidence of an inflammatory processin the right lower quadrant. -------- FINAL REPORT -------- Dictated By: Caleb Walden Dictated Date: 05/19/2025 15:01 ET Assigned Physician: Caleb Walden Reviewed and Electronically Signed By: Caleb Walden Signed Date: 05/19/2025 15:07 ET Workstation ID: [id number] Transcribed By: Self Edit Transcribed Date: 05/19/2025 15:01 ET us Neville Martinez MD IMG CT PROCEDURES Final Res ult * (ABNORMAL) CBC auto differential (05/19/2025 10:47 AM EDT) Only the most recent of2 resultswithin the time period is included. WBC 5.2 4.8 - 10.8 K/mcL LAB HEMETOLOGY METHOD 05/19/2025 11:01 AM [facility] RBC 4.10 3.80 - 4.80 M/mcL LAB HEMETOLOGY METHOD 05/19/2025 11:01 AM [facility] Hemoglobin 12.0 11.5 - 16.0 g/dL LAB HEMETOLOGY METHOD 05/19/2025 11:01 AM [facility] Hematocrit 36.1 35.0 - 47.0 % LAB HEMETOLOGY METHOD 05/19/2025 11:01 AM [facility] MCV 88.3 79.0 - 98.0 FL LAB HEMETOLOGY METHOD 05/19/2025 11:01 AM [facility] MCH 29.3 27.0 - 32.0 pcg LAB HEMETOLOGY METHOD 05/19/2025 11:01 AM [facility] LAB MCHC 33.2 32.0 - 37.0 g/dL LAB HEMETOLOGY METHOD 05/19/2025 11:01 AM [facility] RDW 15.6(H) 11.0 - 15.0 % LAB HEMETOLOGY METHOD 05/19/2025 11:01 AM [facility] Platelets 258 130 - 400 K/mcL LAB HEMETOLOGY METHOD 05/19/2025 11:01 AM [facility] MPV 9.1 7.0 - 11.0 FL LAB HEMETOLOGY METHOD 05/19/2025 11:01 AM [facility] NRBC 0.0 <1.0 % LAB HEMETOLOGY METHOD 05/19/2025 11:01 AM [facility] NRBC Absolute 0.00 <0.10 K/mcL LAB HEMETOLOGY METHOD 05/19/2025 11:01 AM [facility] Neutrophils Relative 56.9 % LAB HEMETOLOGY METHOD 05/19/2025 11:01 AM [facility] Lymphocytes Relative 33.9 % LAB HEMETOLOGY METHOD 05/19/2025 11:01 AM [facility] Monocytes Relative 6.7 % LAB HEMETOLOGY METHOD 05/19/2025 11:01 AM [facility] Eosinophils Relative 1.5 % LAB HEMETOLOGY METHOD 05/19/2025 11:01 AM [facility] Basophils Relative 0.8 % LAB HEMETOLOGY METHOD 05/19/2025 11:01 AM [facility] Immature Granulocytes Relative 0.2 % LAB HEMETOLOGY METHOD 05/19/2025 11:01 AM [facility] Neutrophils Absolute 2.97 1.50 - 7.00 K/mcL LAB HEMETOLOGY METHOD 05/19/2025 11:01 AM [facility] Lymphocytes Absolute 1.77 1.00 - 5.00 K/mcL LAB HEMETOLOGY METHOD 05/19/2025 11:01 AM [facility] Monocytes Absolute 0.35 0.20 - 1.00 K/mcL LAB HEMETOLOGY METHOD 05/19/2025 11:01 AM EDT [facility] LAB Eosinophils Absolute 0.08 0.00 - 0.50 K/[facility] LAB HEMETOLOGY METHOD 05/19/2025 11:01 AM EDT [facility] Basophils Absolute 0.04 0.00 - 0.20 K/[facility] LAB HEMETOLOGY METHOD 05/19/2025 11:01 AM EDT [facility] Immature Granulocytes Absolute 0.01 0.00 - 0.03 K/[facility] LAB HEMETOLOGY METHOD 05/19/2025 11:01 AM EDT [facility] Blood Venous blood specimen / Unknown Venipuncture / Unknown 05/19/2025 10:47 AM EDT 05/19/2025 10:54 AM EDT Neville Martinez MD LAB BLOOD ORDERABLES Final Result Performing Organization Address [facility]/ZIP Co de Phone Number [facility] [address] [place] [address], [place] [phone] * Lipase (05/19/2025 10:47 AM EDT) Lipase 18 13 - 75 unit/L LAB CHEMISTRY METHOD 05/19/2025 11:57 AM EDT [facility] Blood Venous blood specimen / Unknown Venipuncture / Unknown 05/19/2025 10:47 AM EDT 05/19/2025 10:54 AM EDT Neville Martinez MD LAB BLOOD ORDERABLES Final Result [facility] [address] [place] [address], [place] [phone] * (ABNORMAL) Comprehensive metabolic panel (05/19/2025 10:47 AM EDT) Sodium 140 133 - 145 mmol/L LAB CHEMISTRY METHOD 05/19/2025 11:57 AM EDT [facility] Potassium 3.3(L) 3.5 - 5.5 mmol/L LAB CHEMISTRY METHOD 05/19/2025 11:57 AM [facility] Chloride 109 96 - 110 mmol/L LAB CHEMISTRY METHOD 05/19/2025 11:57 AM [facility] CO2 23 21 - 32 mmol/L LAB CHEMISTRY METHOD 05/19/2025 11:57 AM [facility] Anion Gap 8 3 - 11 LAB CHEMISTRY METHOD 05/19/2025 11:57 AM [facility] Glucose 108(H) 70 - 100 mg/dL LAB CHEMISTRY METHOD 05/19/2025 11:57 AM [facility] BUN 16 5 - 25 mg/dL LAB CHEMISTRY METHOD 05/19/2025 11:57 AM [facility] Creatinine 0.86 0.50 - 1.10 mg/dL LAB CHEMISTRY METHOD 05/19/2025 11:57 AM [facility] eGFR 78 >=60 mL/min/1. 73m2 LAB CHEMISTRY METHOD 05/19/2025 11:57 AM [facility] Comment:Calculation based on the Chronic Kidney Disease Epidemiology Collaboration (CKD-EPI) equation refit without adjustment for race. BUN/Creatinine Ratio 18.6 LAB CHEMISTRY METHOD 05/19/2025 11:57 AM [facility] Calcium 9.4 8.5 - 10.5 mg/dL LAB CHEMISTRY METHOD 05/19/2025 11:57 AM [facility] AST (SGOT) 22 10 - 42 unit/L LAB CHEMISTRY METHOD 05/19/2025 11:57 AM [facility] ALT (SGPT) 23 10 - 60 unit/L LAB CHEMISTRY METHOD 05/19/2025 11:57 AM [facility] Alkaline Phosphatase 102 42 - 121 unit/L LAB CHEMISTRY METHOD 05/19/2025 11:57 AM [facility] Total Protein 7.2 6.0 - 8.0 g/dL LAB CHEMISTRY METHOD 05/19/2025 11:57 AM EDT [facility] Albumin 4.0 3.2 - 5.0 g/dL LAB CHEMISTRY METHOD 05/19/2025 11:57 AM EDT [facility] Total Bilirubin 0.5 0.0 - 1.4 mg/dL LAB CHEMISTRY METHOD 05/19/2025 11:57 AM EDT [facility] Blood Venous blood specimen / Unknown Venipuncture / Unknown 05/19/2025 10:47 AM EDT 05/19/2025 10:54 AM EDT us Neville Martinez MD LAB BLOOD ORDERABLES Final Result [facility] [address] [place] [address], [place] [phone] * (ABNORMAL) Urinalysis with reflex microscopic and culture (05/18/2025 3:29 PM EDT) Specific [place] Urine 1.020 1.003 - 1.030 LAB URINALYSIS - AUTOMATED METHOD 05/18/2025 6:32 PM [facility] pH, Urine 5.5 5.0 - 8.0 pH LAB URINALYSIS - AUTOMATED METHOD 05/18/2025 6:32 PM [facility] Leukocytes, Urine Negative Negative LAB URINALYSIS - AUTOMATED METHOD 05/18/2025 6:32 PM [facility] Nitrite, Urine Negative Negative LAB URINALYSIS - AUTOMATED METHOD 05/18/2025 6:32 PM [facility] Protein, Urine Negative <=Trace mg/dL LAB URINALYSIS - AUTOMATED METHOD 05/18/2025 6:32 PM [facility] Glucose, Urine Negative Negative mg/dL LAB URINALYSIS - AUTOMATED METHOD 05/18/2025 6:32 PM EDT [facility] Ketones, Urine Negative Negative mg/dL LAB URINALYSIS - AUTOMATED METHOD 05/18/2025 6:32 PM [facility] Urobilinogen, Urine 0.2 0.2 - 1.0 mg/dL LAB URINALYSIS - AUTOMATED METHOD 05/18/2025 6:32 PM [facility] Bilirubin, Urine Negative Negative LAB URINALYSIS - AUTOMATED METHOD 05/18/2025 6:32 PM [facility] Blood, Urine Trace(A) Negative LAB URINALYSIS - AUTOMATED METHOD 05/18/2025 6:32 PM [facility] RBC, Urine 14.0(H) 0 - 4 /HPF LAB URINALYSIS - AUTOMATED METHOD 05/18/2025 6:32 PM [facility] WBC, Urine 1.5 0 - 4 /HPF LAB URINALYSIS - AUTOMATED METHOD 05/18/2025 6:32 PM [facility] Squamous Epithelial, Urine 82(H) 0 - 60 /LPF LAB URINALYSIS - AUTOMATED METHOD 05/18/2025 6:32 PM [facility] Bacteria, Urine Few(A) Negative /HPF LAB URINALYSIS - AUTOMATED METHOD 05/18/2025 6:32 PM [facility] Hyaline Casts, Urine 2.0 0 - 3 /LPF LAB URINALYSIS - AUTOMATED METHOD 05/18/2025 6:32 PM [facility] Urine Urine specimen obtained by clean catch procedure / Unknown Non-blood Collection / Unknown 05/18/2025 3:29 PM EDT 05/18/2025 3:29 PM EDT us Sudarshan Phillips NP LAB URINE ORDERABLES Final Res ult [facility] [address] [place] [address], [place] [phone] * Siddiqui urine culture tube (05/18/2025 3:29 PM EDT) [facility] Extra Tube Hold for add-ons. 05/18/2025 9:01 PM EDT [facility] Comment:Auto resulted. Urine Urine specimen obtained by clean catch procedure / Unknown Non-blood Collection / Unknown 05/18/2025 3:29 PM EDT 05/18/2025 3:29 PM EDT us Sudarshan Phillips BOND WRITER LAB URINE ORDERABLES Final Res ult Performing Organization Address [facility]/ZIP Co de Phone Number [facility] [address] [place] [address], [place] [phone] * Hemoglobin A1c (05/18/2025 3:29 PM EDT) [facility] Hemoglobin A1C 6.1 <6.5 % LAB CHEMISTRY METHOD 05/19/2025 1:04 PM EDT [facility] Mean Bld Glu Estim. 128 mg/dL LAB CHEMISTRY METHOD 05/19/2025 1:04 PM EDT [facility] Blood Venous blood specimen / Unknown Venipuncture / Unknown 05/18/2025 3:29 PM EDT 05/18/2025 3:29 PM EDT Sudarshan Phillips BOND WRITER LAB BLOOD ORDERABLES Final Res ult [facility] [address] [place] [address], [place] [phone] * (ABNORMAL) Basic metabolic panel (05/18/2025 3:29 PM EDT) [facility] Sodium 140 133 - 145 mmol/L LAB CHEMISTRY METHOD 05/18/2025 8:46 PM EDT [facility] Potassium 3.5 3.5 - 5.5 mmol/L LAB CHEMISTRY METHOD 05/18/2025 8:46 PM [facility] Chloride 109 96 - 110 mmol/L LAB CHEMISTRY METHOD 05/18/2025 8:46 PM [facility] CO2 29 21 - 32 mmol/L LAB CHEMISTRY METHOD 05/18/2025 8:46 PM [facility] Anion Gap 2(L) 3 - 11 LAB CHEMISTRY METHOD 05/18/2025 8:46 PM [facility] Glucose 97 70 - 100 mg/dL LAB CHEMISTRY METHOD 05/18/2025 8:46 PM [facility] BUN 18 5 - 25 mg/dL LAB CHEMISTRY METHOD 05/18/2025 8:46 PM [facility] Creatinine 0.83 0.50 - 1.10 mg/dL LAB CHEMISTRY METHOD 05/18/2025 8:46 PM [facility] eGFR 82 >=60 mL/min/1. 73m2 LAB CHEMISTRY METHOD 05/18/2025 8:46 PM [facility] Comment:Calculation based on the Chronic Kidney Disease Epidemiology Collaboration (CKD-EPI) equation refit without adjustment for race. BUN/Creatinine Ratio 21.7 LAB CHEMISTRY METHOD 05/18/2025 8:46 PM [facility] Calcium 9.7 8.5 - 10.5 mg/dL LAB CHEMISTRY METHOD 05/18/2025 8:46 PM T [facility] Blood Venous blood specimen / Unknown Venipuncture / Unknown 05/18/2025 3:29 PM EDT 05/18/2025 3:29 PM EDT us Sudarshan Phillips NP LAB BLOOD ORDERABLES Final Res ult [facility] [address] [place] [address], * External Colonoscopy Report (01/30/2025 10:12 AM EDT) Anatomical Region Laterality Modality Endoscopy us Historical Provider MD DOE~PROCEDURE ORDERABLES F inal Result * [facility] SCREENING DIGITAL (03/13/2024 11:14 AM EDT) Anatomical Region Laterality Modality Mammography 03/13/2024 8:14 AM EDT Narrative 03/13/2024 11:14 AM EDT [facility] Diagnostic Imaging Department [address] [place] [id number] Patient: KASANDRA ELIZABETH BRENNON YousifB./Age/Sex: 1965 - 58 - F Unit#: [id number] Location/Status: SPDIMAM/REG CLI Mnemonic/Ordering Site: [facility] Ordering Physician: NEREIDA NGUYEN APRN [facility] Screening Digital - 03/13/24 - [id number] Report Status:Signed EXAM: [facility] Screening Digital EXAM DATE AND TIME: 03/13/2024 8:43 AM HISTORY: Screening. Reduction mammoplasty in 2021. COMPARISON: 03/18/23, 03/08/23, 11/11/21 TECHNIQUE: Bilateral digital breast tomosynthesis was performed in the CC and MLO projections. Computer aided detection with [employer] 3D 3.1 was employed. TISSUE DENSITY: c. The breasts are heterogeneously dense, which may obscure small masses. FINDINGS: Reduction mammoplasty sequelae are again seen. No suspicious masses, grouped microcalcifications, or developing architectural distortion are seen. There are rare benign calcifications. The skin and vascularity are unremarkable. IMPRESSION: Stable mammographic appearance of the breasts. No evidence of malignancy is seen. A negative mammogram in the presence of a clinically suspicious palpable abnormality does not preclude the possibility of malignancy or alter the indications for biopsy. BI-RADS: Category 2: Benign RECOMMENDATION(S): 1: Routine screening mammogram BILATERAL in 1 year. Dictating Physician: MARIA EUGENIA AGUILAR MD Electronically Signed by: MARIA EUGENIA AGUILAR MD Dic Date/Time: 03/13/24 1113 Sign date/Time: 03/13/24 111 Procedure Note Maria Eugenia Aguilar MD - 06/28/2024 [facility] Diagnostic Imaging Department [address] [place], [place] [id number] Patient: KASANDRA ELIZABETH BRENNON YousifB./Age/Sex: 1965 - 58 -F Unit#: [id number] Location/Status: [facility] CLI Mnemonic/Ordering Site: [facility] Ordering Physician: NEREIDA NGUYEN APRN [facility] Screening Digital - 03/13/24 - 841 Report Status:Signed EXAM: [facility] Screening Digital EXAM DATE AND TIME: 03/13/2024 8:43 AM HISTORY: Screening. Reduction mammoplasty in 2021. COMPARISON: 03/18/23, 03/08/23, 3/1/22 TECHNIQUE: Bilateral digital breast tomosynthesis was performed in the CCand MLO projections. Computer aided detection with [employer] Bet[employer] 3D 3.1was employed. TISSUE DENSITY: c. The breasts are heterogeneously dense, which mayobscure small masses. FINDINGS: Reduction mammoplasty sequelae are again seen. No suspicious masses,grouped microcalcifications, or developing architectural distortion are seen.There are rare benign calcifications. The skin and vascularity are unremarkable. IMPRESSION: Stable mammographic appearance of the breasts. No evidence of malignancyis seen. A negative mammogram in the presence of a clinically suspicious palpable abnormality does not preclude the possibility of malignancy or alter the indications for biopsy. BI-RADS: Category 2: Benign RECOMMENDATION(S): 1: Routine screening mammogram BILATERAL in 1 year. Dictating Physician: MARIA EUGENIA AGUILAR MD Electronically Signed by: MARIA EUGENIA AGUILAR MD Dic Date/Time: 03/13/24 1113 Sign date/Time: 03/13/24 1114 Anahi Jensen NP IMG BI PROCEDURES Final Result * Lipid panel (02/09/2023) LDL/HDL Ratio 2 0 - 4 Triglycerides 61 0 - 150 mg/dL Cholesterol 192 0 - 200 mg/dL HDL 86 >=40 mg/dL LDL Cholesterol 94 0 - 100 mg/dL Blood Venous blood specimen / Unknown Result [facility] Historical Provider LAB BLOOD ORDERABLES Josee l Result * Hepatitis C Screening (11/06/2022) Pathologist [facility] Hepatitis C Screening Abstracted Historical Provider HEALTH MAINTENANCE Final Result from Last 3 Months or Most Recently Relevant to Health Maintenance Insurance [facility] Care Teams Emergency Room Orderly Relationship Specialty Start Date End Date Anahi Jensen NP [address] [facility] [place] [address] PCP - General 10/02/22
--- OUTSIDE RECORDS SUMMARY | 2025-08-03 10:07 | XMS_ITS | Clinical Summary ---
Author Organization [address] Address [address] [place] [phone] Phone Care Team Providers Care Solutions Manager Name Role Phone Unavailable Primary Care Provider Unavailabl e Social History Tobacco Use Types Packs/Day Years Used Date Smoking Tobacco: Never Assessed Comments Unknown Sex and Gender Information Value Date Recorded Sex Assigned at Not on file Legal Sex Female 3:17 PM EDT Gender Identity Not on file Sexual Orientation Not on file Plan of Treatment Health Maintenance Due Date Last Done Comments HIV screening 1979 Hepatitis C screening 1984 Tetanus adult (Td q 10,TDAP once) 1986 Cervical cancer screening 1987 Breast cancer screening 2006 Lipid disorder screening 2006 Colon cancer screening, Colonoscopy 2011 Diabetes screening 2011 Pneumococcal Vaccine (50+ ye ars) (1 of 1 - PCV) 2016 Shingles vaccine (Shingrix) (1 of 2 - Shingrix (RZV) 2 Dose Standard Series) 2016 Influenza vaccine 04/13/2025 Covid-19 vaccine series ( - season) 2025 RSV Immunization (1 - 1-dose 75+ series) 2041 Meningococcal B Vaccine Aged Out No l onger eligible based on patient's age to complete this topic Meningococcal Vaccine Aged Out No liset kel eligible based on patient's age to complete this topic
--- OUTSIDE RECORDS SUMMARY | 2025-08-03 10:07 | XMS_ITS | Clinical Summary ---
Author Organization [facility] Address [address] [place] [address] Care Team Providers Care Inspector Heating And Refrigeration Name Role Phone Unavailable Primary Care Provider [...] of 2) 2016 COVID-19 Vaccine (1 - season) 2025 RSV Vaccine 50 years and old er and Patients (1 - 1-dose 75+ series) 2041
--- OUTSIDE RECORDS SUMMARY | 2025-08-03 10:07 | XMS_ITS | Encounter Summary ---
Author Organization [facility] Address [address] [place] [address] Care Team Providers Care Driver/Refuse Collector Name Role Phone Anahi Jensen NP Primary Care Provider [phone] Encounter Details Date Type Department Care Team (Late st Contact Info) Description 07/11/2025 Lab Requisition [facility] - Main Lab [address] [facility] [place] [phone] Dwight Perez, GRACIELA [address] [place] [phone] Benign essential microscopic hematuria Social History Tobacco Use Types Packs/Day Years [...] for your loved ones. For example, child care attendant or elderly care for an older adult? [...] as of this encounter Functional Status * Are you deaf or do you have serious difficulty hearing? Answer Date of Assessment Author No 05/19/2025 3:24 PM EDDarlin Goyal RN * Are you blind or do you have serious difficulty seeing, even when wearing glasses? Answer Date of Assessment Author No 05/19/2025 3:24 PM Darlin Navarrete RN * Do you have serious difficulty walking or climbing stairs? Answer Date of Assessment Author No 05/19/2025 3:24 PM EDT Darlin Morales RN * Do you have serious difficulty dressing or bathing? Answer Date of Assessment Author No 05/19/2025 3:24 PM EDT Darlin Morales RN * Because of a physical, mental, or emotional condition, do you have serious difficulty doing errandsalone such as visiting the doctor? Answer Date of Assessment Author No 05/19/2025 3:24 PM EDT Darlin Morales RN documented as of this encounter Mental Status * Because of a physical, mental, or emotional condition, do you have serious difficulty concentrating, remembering, or making decisions? (5 years old or older) Answer Entry Date Author No 05/19/2025 3:24 PM EDT Darlin Morales RN documented in this encounter Plan of Treatment Upcoming Encounters Date Type Department Care Team (Late st Contact Info) Description 10/02/2025 8:00 AM EST Office Visit [facility] [address] [phone] Ramirez Suazo MD [address] [place] [address] 11/26/2025 8:30 AM EDT Office Visit [facility] [address] [place] [address] Anahi Jensen NP [address] [place] [address] documented as of this encounter Procedures Procedure Name Priority Date/Time Associated Diagnosis Comments NON-GYNECOLOGIC CYTOLOGY Routine 06/22/2025 12:00 AM EDT Benign essential microscopic hematuria documented in this encounter Results * Non-gynecologic cytology (06/22/2025 12:00 AM EDT) Final Diagnosis Urine, Voided ([id number]): Negative for high grade urothelial carcinoma. Results of UroVysion fluorescence in situ hybridization (FISH) testing: CEP3: Normal CEP7: Normal CEP17: Normal LSI 9p21: Normal Interpretation: Normal profile Controls stained appropriately. Note: The results are intended as a screening device and should be interpreted in association with other clinical and pathological findings. 07/17/2025 10:31 AM [facility] at 1031 EST Specimen A Adequacy Satisfactory for evaluation 07/17/2025 10:31 AM [facility] Clinical Information Benign essential microscopic hematuria R31.1 Urine Cytology/FISH (now) 07/17/2025 10:31 AM [facility] Gross Description A. Urine, Voided, ([id number]): Received one ThinPrep slide for cytology and one ThinPrep slide for UroVysion FISH 07/17/2025 10:31 AM [facility] Disclaimer Unless otherwise specified, all tissue is 10% NB formalin fixed and paraffin embedded. Technical pathology services provided by [facility] at [address], [place] [address] (CLIA #[id number]/Pat Nevarez MD, Cuprous Chloride Helper) 07/17/2025 10:31 AM [facility] Urine Urine specimen from urethra / Unknown 06/22/2025 07/11/2025 12:00 PM EDT us Dwight OWENS LAB CYTOLOGY ORDERABLES Final Result [facility] [address] [place] [address], documented in this encounter Visit Diagnoses Diagnosis Benign essential microscopic hematuria documented in this encounter Additional Health Concerns Assessment Noted Time PHQ-9 Depression Total Score: 0 11/30/19 25 8:43 AM EDT documented as of this encounter Care Teams Driver/Refuse Collector Relationship Specialty Start Date End Date Anahi Jensen NP [address] [place] [address] PCP - General 10/02/22 documented as of this encounter
--- OUTSIDE RECORDS SUMMARY | 2025-08-03 10:07 | XMS_ITS | Patient Health Record ---
Author Organization [facility] [place] Address [address] [place] [address] Care Team Providers Care Soda Worker Name Role Phone Anahi Jensen Primary Care Provider Ceci Galdamez Unavailable [phone] Allergies No Known Allergies Reason For Referral [...] W/U Status Risk Notes Problem Plantar wart (10572402) Plantar wart (B07.0) Active confirmed Problem Acquired hammer toe of left foot ([id number] 103) Other hammer toe(s) (acquired), left foot (M20.42) Active confirmed Problem Chronic ulcer of lower extremity (99665039) 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) Active confirmed Vital Signs Blood pressure diastolic 70 mm Hg 02/22/2025 Height 5ft 1in in 02/22/2025 Blood pressure systolic 130 mm Hg 02/22/2025 Weight 130 lbs 02/22/2025 BMI 24.56 kg/m2 02/22/2025 Encounters [facility]counter [facility] Date [facility] [address] [facility] Ceci Aguero Plantar wart B07.0 ; Other hammer toe(s) (acquired), left foot M20.42 ; Tinea pedis of both feet B35.3 ; Left foot pain M79.672 ; Pain in left toe(s) M79.675 and Heloma molle L[address] [facility] [address] 02/16/2025 Ceci Pericariela [facility] [address] 02/22/2025 Ceci Pericariela [facility] [address] 02/22/2025 Ceci Aguero [address] [address] 04/09/2025 Ceci Aguero Assessments Encounter Date Diagnosis [...] Insured Coverage Start Date Coverage End Date [facility] [address] [facility] [place] [address] [phone] [id number] Kasandra Stewart Self - patient is the insured Medical (General) History Medical History History ICD Code Crohns disease High Blood Pressure Surgical History Surgery Date(Month/Year) hysterectomy Hospitalization History Reason Date(Month/Year) issues with foot and stomach
--- OUTSIDE RECORDS SUMMARY | 2025-08-03 10:07 | XMS_ITS | Encounter Summary ---
Author Organization [facility] Address [address] [place] [id number] Care Team Providers Care Senior Contract Specialist Name Role Phone Unavailable Primary Care Provider Unavailabl e Encounter Details Date Type Department Care Team (Latest Contact Info) Description 01/01/2022 Transcribed Orders [facility] Spec[facility] [address] [place], [place] [id number] Emre Mathur MD [address] [place] [id number] Encounter for breast augmentation (Primary Dx); [...] Detected Not Detected 01/15/2022 6:14 AM EDT [facility] DEPART[facility] OF LABORATORY MEDICINE Comment: Negative for SARS-CoV-2 RNA. Fact Sheet for Healthcare Providers: https://www.fda.gov/media/010537/download Fact Sheet for Patients: https://www.fda.gov/media/825198/download Test performed using the Alicia rossy 6800 real-time RT-PCR assay. Test ordering and result interpretation is at the discretion of the ordering provider. Test performance has not been evaluated in asymptomatic patients. Test ordering and result interpretation is at the discretion of the ordering provider. Test performed at: [facility] DEPARTMENT OF LABORATORY MEDICINE [address] [place] [id number] Director: Bradford Ordoñez MD [facility]#: [id number] Viral NASOPHARYNGEAL STRUCTURE / Unknown Collection / Unknown 01/14/2022 3:18 PM EDT 01/14/2022 3:18 PM EDT Emre Mathur MD MICROBIOLOGY - GENERAL ORDERABLE S Final Result Performing Organization Address [facility]/State/[facility] Co de Phone Number [facility] DEPARTMENT OF LABORATORY MEDICINE [address] [place] [id number], [facility] [phone] documented in this encounter Visit Diagnoses Diagnosis Encounter for breast augmentation- Primary Other plastic surgery for unacceptable cosmetic appearance Pre-op testing Preoperative examination, unspecified documented in this encounter
--- OUTSIDE RECORDS SUMMARY | 2025-08-03 10:07 | XMS_ITS | Clinical Summary ---
Author Organization [facility] Address [address] [place] [address] Care Team Providers Care Kettle Hand Name Role Phone Marlon Jimenes MD Primary Care Provider [phone] Allergies No known active allergies Medications Medication Sig Dispensed Refills Start Date End Date Status metroNIDAZOLE (FLAGYL) 250 MG tablet Take 1 tablet (250 mg total) by mouth 2 (two) times a day. 0 2022 Active nystatin (MYCOSTATIN) 037784 UNIT/ML suspension TAKE 4-6 ML BY MOUTH [...] age to complete this topic Care Teams Kettle Hand Relationship Specialty Start Date End Date Marlon Jimenes MD [address] [id number] PCP - General Internal Medicine 06/10/22
== END 2025-08-02 09:34 | disposition home or self-care (01) ==
LOC: HO.HOSX 09:33
PROVIDERS: Visit Provider Physician Assistant
DX: G95.9 Disease of spinal cord, unspecified (principal); Z98.1 Arthrodesis status
CPT/HCPCS: 72050

== ENCOUNTER → 2025-08-02 09:33 | Outpatient (BNV) | payer OTHER, SELFPAY | PROVIDERS: Visit Provider Radiology Diagnostic Radiology | DX: M47.812 Spondylosis without myelopathy or radiculopathy, cervical region (principal) | CPT/HCPCS: 72050 ==

== ENCOUNTER 2025-08-02 09:55 | Outpatient (AMB) | payer OTHER, SELFPAY ==
--- NOTE | 2025-08-02 09:58 | HO.SPINEOV ---
Intake Visit Reasons: 2nd post op with xrays Intake Note: Ms. Stewart is here today for her 2nd post op with x-rays. Precision Instrument And Tool Maker Required: No Allergies No Known Allergies Allergy (Verified 03/26/25 09:30) Assessment & Plan Assessment & Plan (1) S/P cervical spinal fusion: Code(s): Z98.1 - Arthrodesis status Category: Surgical Plan: Procedure: C4-5 ACDF Kasandra de león a pleasant 60-year-old female comes in today for a 2nd postoperative visit after having a C4-[address] Kenny. She reports that overall she has done very well from her surgery. She does still have some numbness/tingling of her right hand, however reports that this is low-grade in nature. She reports no neck pain, and no shooting pains into her arms. Still has some mid back pain, but reports that she is unsure if it is related to the issues she has with her neck. We discussed the postoperative healing course, and I answered all questions that she had. We reviewed her dynamic cervical spine x-rays taken during this visit which shows stable placement of her surgical construct with no changes from fluoroscopy. No new neurological deficits. The patient ambulates well and rises from seated position without difficulty. She uses no assistive devices to ambulate. Her anterior incision site is closed and well healed. There is no need for continued routine follow up with Leslie. I would like to send her for a course of occupational therapy, given that she still has some difficulties with ADLs despite her doing very well overall after surgery. She reports that she lives in [place] near the [facility], so I will send her to [facility]. Juan Kenny MD,PhD [facility] Orders: Orders OT Evaluation and Treatment Today Z98.1 - Arthrodesis status Coding Level of Care Code Global (73793) Diagnoses S/P cervical spinal fusion Z98.1
--- OUTSIDE RECORDS SUMMARY | 2025-08-02 14:27 | XMS_ITS | Data Portability ---
Author Organization [place] - [facility], Allergy Address [address] [facility] [address] [place] [address] Care Team Providers [facility] Assistant Name Role Phone PATRICK PADRON Primary Care Provider Assessment Encounter Date Assessment Date Assessment LastModified by Organization Details LastModified Time 10/27/2024 10/27/2024 59-year-old female, smoker, with reflux on pantoprazole, presents today for evaluation of several symptoms related to recent URI including ear pain, congestion, nasal drainage. She was initially referred several months ago for dysphagia. She has had endoscopy which has been normal and an upper GI study which showed evidence of reflux. On exam today, middle ears are well aerated. Nasal endoscopy does not reveal any polyps or purulence. Flexible laryngoscopy shows some mild cobblestoning and interarytenoid thickening, no mass, ulceration, nor asymmetry. I recommended symptomatic relief for her lingering URI symptoms. I reassured her that there was no lesion on exam and that her dysphagia is likely related to her reflux. I recommended avoiding eating close to bedtime. For ear discomfort, she does have some tenderness to palpation over the TMJ. We reviewed jaw joint precautions. I reassured her that any fluid she previously had has resolved on exam today. [email or web address] Not available 10/27/2024 20:45:44 Plan of Treatment Reminders Order Date Submit Date Provider Last Modified By Organization Details Last Modified Time Details Appointments None record ed. Lab None record ed. Referral None record ed. Procedures None record ed. Surgeries None record ed. Imaging None record ed. Medication Orders None record ed. Patient TargetsNo targets recorded. Patient InstructionsNo instructions recorded. Reason for Referral None Reported. 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 [facility]ogen[facility] dysphagia, including 'globus hystericus '; Note: Date Diagnosed: 06/14/2020 12:03 PM (F45.8) Not Available [facility] 4 02:27:50 Gastroeso phageal reflux disease without esophagit is 085522811 Active 2024 JAGDISH DONNELLY MD [address],[place] [facility], [place], [address] , [facility] - [facility] 5 20:43:16 Dysphagia 55981236 Active 2024 JAGDISH DONNELLY MD [address] [facility],[place] [address], [place], [address] , [facility] - [facility] 5 20:43:21 Problem Notes None recorded. Procedures Surgical History Date Name Laterality Status Provider Name and Address Organization Details Recorded Time 10/27/19 25 Fiberoptic Laryngoscopy (Comprehensive) completed JAGDISH DONNELLY MD [address],[place] [facility], [place], [address], [place] - [facility] 10/27/2024 20:42:32 Imaging Results None recorded. Procedure Notes None recorded. Medical Equipment None Reported. Allergies No known drug allergies Medications Name Sig Start Date Stop Date Status Note LastModified by Organization Details LastModified Time cyclobenz aprine 10 mg tablet TAKE 1 TABLET BY MOUTH THREE TIMES DAILY 10/27 completed Not Available Not Available Not Available cetirizin e 10 mg tablet TAKE 1 TABLET BY MOUTH ONE TIME EACH DAY active Not Available Not Available No t Available citalopra m 10 mg tablet TAKE 1 TABLET BY MOUTH DAILY 10/27 completed Not Available Not Available Not Available senna 8.6 mg tablet TAKE 1 TABLET BY MOUTH DAILY 10/27 completed Not Available Not Available Not Available prednison e 20 mg tablet 10/27 completed Not Available Not Available Not Available amlodipin e 5 mg tablet TAKE 1 TABLET BY MOUTH DAILY active Not Available Not Available No t Available pantopraz ole 20 mg tablet,de layed release TAKE 1 TABLET BY MOUTH DAILY 10/27 completed Not Available Not Available Not Available oxycodone -acetamin ophen 5 mg-325 mg tablet TAKE 1 TABLET BY MOUTH FOUR TIMES DAILY FOR 7 DAYS 10/27 completed Not Available Not Available Not Available alprazola m 0.25 mg tablet TAKE 1 TABLET BY MOUTH AT BEDTIME NEEDED FOR SLEEP OR ANXIETY 10/27 completed Not Available Not Available Not Available famotidin e 20 mg tablet TAKE 1 TABLET BY MOUTH TWICE DAILY NEEDED FOR BREAKTHR [facility] HEART[facility] N OR SYMPTOMS 10/27 completed Not Available Not Available Not Available prednisol one acetate 1 % eye drops,livan pension SHAKE LIQUID AND INSTILL 1 DROP IN LEFT EYE FOUR TIMES DAILY 10/27 completed Not Available Not Available Not Available pantopraz ole 40 mg tablet,de layed release active Not Available Not Available Not Available diphenhyd ramine 25 mg capsule 10/27 completed Not Available Not Available Not Available naproxen 500 mg tablet,de layed release TAKE 1 TABLET BY MOUTH TWICE DAILY 10/27 completed Not Available Not Available Not Available losartan 25 mg tablet TAKE 1 TABLET BY MOUTH EVERY DAY 10/27 completed Not Available Not Available Not Available nicotine 21 mg/24 hr daily transderm al patch 1 PATCH TOPICALL Y DAILY 10/27 completed Not Available Not Available Not Available gabapenti n 100 mg capsule TAKE 1 TO 3 CAPSULES BY MOUTH THREE TIMES DAILY NEEDED FOR PAIN 10/27 completed Not Available Not Available Not Available dicyclomi ne 10 mg capsule TAKE 1 CAPSULE BY MOUTH FOUR TIMES DAILY FOR PAIN 10/27 completed Not Available Not Available Not Available nitrofura ntoin monohydra te/macroc rystals 100 mg capsule TAKE 1 CAPSULE BY MOUTH TWICE DAILY FOR 5 DAYS 10/27 completed Not Available Not Available Not Available Vitamin D3 10/27 completed Medicati on ID: [id number] rand Name: Vitamin D3 Send Method: E-Prescr ibed Sub s Allowed: subs OK Medic ationGen ericName : Vitamin D3 Not Available Not Available Not Available mesalamin e 1.2 gram tablet,de layed release 10/27 completed Medicati on ID: [id number] B rand Name: mesalami ne Send Method: E-Prescr ibed Sub s Allowed: subs OK Speci al Instruct ion: TK 4 TS PO QD Medic ationGen ericName : mesalami ne Not Available Not Available Not Available omeprazol e magnesium 20 mg capsule,d elayed release 10/27 completed Medicati on ID: [id number] B rand Name: nena moon Send Method: E-Prescr ibed Sub s Allowed: subs OK Medic ationGen ericName : omepramarisel moon Not Available Not Available Not Available Flonase Sensimist 27.5 mcg/actua tion nasal spray,livan pension SHAKE LIQUID AND USE 1 TO 2 SPRAYS IN EACH NOSTRIL 1 TIME EACH DAY 10/27 completed Not Available Not Available Not Available nicotine (polacril ex) 2 mg buccal mini lozenge USE 1 LOZENGE BY MOUTH EVERY 2 HOURS 10/27 completed Not Available Not Available Not Available Plenvu 140 gram-9 gram-5.2 gram powder packs DISSOLVE 3 PACKETS IN WATER AND TAKE DIRECTED 10/27 completed Not Available Not Available Not Available BinaxNOW COVID-19 Ag Self Test kit TEST DIRECTED TODAY 10/27 completed Not Available Not Available Not Available Vitals Date Recorded Body height Body mass index (BMI) Body weight Provider Name and Address Organization Details Last Updated DateTime 10/27/2024 154.94 cm 24.6 kg/m2 28263.01 g Capri Briseno [place] - [facility] 10/27/2024 10:33:57 Social History Question Answer Notes LastModified by Organizat ion Details LastModified Time Tobacco Smoking Status Current Every Day Smoker JAGDISH DONNELLY MD [address] [place] [address], [phone], [facility] - [facility] 10/27/2024 10:49:59 How Much Tobacco Do You Smoke? 0.5 PPD [email or web address] Information not available 10/27/2024 Sex: Unknown Functional Status None recorded. Mental Status None recorded. Family History Nothing Reported. Medical History Condition Response Hypertension Y GERD/Reflux Y Gynecological HistoryNo gynecological history recorded. Obstetrics History GPAL:G 0 P 0 0 0 0 Past Encounters Encounter ID Performer Location Encounter Start Date Encounter Closed Date Diagnosis/Indication Diagnosis SNOMED-CT Code Diagnosis ICD10 Code Diagnosis IMO Codes Diagnosis Note [id number] JAGDISH DONNELLY MD [facility] [address] [place] [address] 10/27/2024 10:17:56 10/27/2024 12:45:47 Gastroesophageal reflux disease without esophagitis 903774127 K21.9 Dysphagia 57669628 R13.1 0 Tobacco user 194670984 Z 72.0 Health Concerns Section Related Observation LastModified by Organization Detai ls LastModified Time None Recorded Concern Status LastModified by Organization Details LastModified Time None Recorded Advance Directives Directive None Recorded Payers Insurance Date Sequence Insurance Name Policy Number Policy Hernadez Covered Member ID Hernadez Member ID Guarantor Name 01/08/[address] [place] [address] [id number] Kasandra Stewart [id number] Kasandra Stewart Notes Date Note Type Note Provider Name and Address Organization Details Recorded Time 10/27/2024 text/html ROS as noted in the HPI 59 yo F withseveral symptoms: diagnosed with fluid in the ear, was very painful about 2-3 weeks ago now a little better, no medication due to pain, gave allergy medication and flonase did not take it today no trouble with hearingno clenchingsome headaches recently some nasal drainage a couple of weeks now, no history of allergies throat hurts sometimes if getting ready to swallow somethingsees occupational nurse, has looked okhad endoscopy which looked normalno choking, feels a little mucushistory of acid reflux, on pantoprazolehas had UGI as well showing some mild reflux JAGDISH DONNELLY MD [address] [address], [place], [address], [facility] - [facility] 10/27/2024 20:46:12 OBGyn Episode No OBEpisode recorded.
== END 2025-08-02 10:32 | disposition home or self-care (01) ==
LOC: HO.HNS 09:55
PROVIDERS: Visit Provider Physician Assistant
DX: Z98.1 Arthrodesis status (principal)
CPT/HCPCS: 99024